=== PATIENT | female | born 1990 | race Two or more races ===

== ENCOUNTER 2024-05-26 20:49 | Emergency (ER) | payer MEDICAID, SELFPAY ==
[2024-05-26 20:51] VITALS: BMI 21.9
--- NOTE | 2024-05-26 21:50 | PC.NURSE ---
no answer when called to be seen
--- NOTE | 2024-05-26 22:06 | PC.NURSE ---
CALLED PATIENT IN THE LOBBY AND OUTSIDE, NO ANSWER RECEIVED.
--- NOTE | 2024-05-26 22:08 | PD.EDADDENDU ---
Emergency Room Addendum Addendum Narrative: When I looked for the patient, I was told the patient eloped. Hernesto Sheehan MD
--- NOTE | 2024-05-26 22:25 | PC.NURSE ---
no answer when called to be seen
== END 2024-05-26 23:01 | disposition left against medical advice (07) ==
LOC: SERX 22:43
PROVIDERS: Emergency Provider Emergency Medicine
DX: Z53.21 Procedure and treatment not carried out due to patient leaving prior to being seen by health care provider (principal)

== ENCOUNTER 2024-06-11 16:29 | Inpatient (IN) | payer MEDICAID, SELFPAY ==
[2024-06-11] VITALS (10 sets, daily range): BP systolic 84–120; BP diastolic 50–102; PULSE 71–124; RESP 16–96; TEMP 37.1–38.3; O2SAT 95–100; BMI 21.2
--- NOTE | 2024-06-11 16:40 | PC.NURSE ---
BIBA FROM HOME FOR BACK TO BACK SEIZURES, EMS WITNESS A TONIC CLONIC SEIZURE WHEN THEY ARRIVED ON SCENE. PT DOES HAVE A HX OF SEIZURES AND IS ON KEPPRA. EMS GAVE 2.5MG OF MIDAZOLAM EN ROUTE. SEPSIS ALERT CALLED AT [id number]
--- NOTE | 2024-06-11 16:43 | XR_ITS ---
Examination: AP chest single view TECHNIQUE: AP portable supine chest single view Exam date and time:: June 11, 2024 at 1653 hours Comparison March 19, 2020 INDICATIONS: Chest pain today FINDINGS: Subtle opacity in the right upper lobe Normal heart size Left lung clear Intact osseous structures IMPRESSION: Suspicious for right upper lobe pneumonia
--- NOTE | 2024-06-11 16:43 | XR_ITS ---
Examination: CT brain head without contrast. 2-D sagittal coronal reconstructions Date and time of exam:June 11, 2024, 1819 hours Comparison November 25, 2022 INDICATIONS: Onset seizures today, seizure November 2022 CTDI: vol (mGy):47.2 DLP: (mGycm):959 Technique: Multiple CT axial sections of the brain have been obtained, 5 mm slice thickness. Contrast has not been administered. 2-D sagittal, coronal reconstructions have been obtained Low dose protocols were performed. One or more of the following dose reduction techniques were used; automated exposure control, adjustment of the mA and/or KV according to patient size, use of iterative reconstruction technique. Findings: Patient motion degrades scan image quality Ventricles are not enlarged. No gross mass effect No gross hemorrhage or focal intracranial lesion noted Cranial vault grossly intact Acute sphenoid sinusitis, chronic left ethmoid and frontal sinusitis IMPRESSION: Patient motion degrades scan image quality. No gross hemorrhage mass effect or midline shift Consider repeat elective brain MRI follow-up, pre and postcontrast, seizure protocol
--- NOTE | 2024-06-11 16:45 | EDNOTE_ITS ---
<Statement entered by Lizbeth Ching MD - 06/12/24 04:24> As co-signing physician, I was present and available for consult prn. I concur with the plan and care as documented by the midlevel provider. ED Seizures RME/HPI General Chief Complaint: Seizure Stated Complaint: SEIZURE Time Seen by Provider: 06/11/24 16:40 Arrival date/time: 06/11/24 16:29 RME / HPI RME / HPI Narrative: 34-year-old female patient was brought in by EMS for evaluation regarding tonic- clonic seizure. Cording to the EMS patient was noted to have clonic specific seizure [id number], lasting for few minutes. Patient developed incontinence. Patient did not bite her tongue. Patient was given Versed 2.5 mg IV. On my initial evaluation patient completely sedated. Patient is taking Keppra. Was noted to have fever. Related Data Previous Rx's ?Medication ?Instructions ?Recorded cyclobenzaprine 10 mg tablet 10 mg PO TID PRN muscle s pasm #30 03/19/20 tabs ibuprofen 600 mg tablet 600 mg PO Q8H PRN pain #30 t abs 03/19/20 Allergies Allergy/AdvReac Type Severity Reaction Status Date / Time No Known Allergies Allergy Verified 06/11/24 16:40 Review of Systems Review of Systems Narrative Review of Systems: Review of system reviewed and within normal limits except mentioned in HPI ED Exam Narrative Physical exam: VITAL SIGNS: Reviewed. GENERAL APPEARANCE: Sedated no acute distress, HEAD AND FACE: Non-traumatic. ENT: PERRL, pink conjunctivitis, eyelid no trauma, Mucous membrane moist. NECK: Supple, , no nuchal rigidity. CHEST: No tenderness, no crepitus, no paradoxical movement, no retractions. LUNGS: Clear, well ventilated, symmetric, no rales, no wheezing, no ronchi, no stridor, good breath sounds bilaterally. HEART: Regular rate, regular rhythm, no murmur, no gallops. ABDOMEN: Soft, positive bowel sounds, nondistended, no guarding, no rebound, no masses, RECTAL: Deferred. GENITAL: Deferred. NEUROLOGICAL: Gross motor function intact sensory function intact, Appropriate for age. EXTREMITIES: full range of motion. SKIN: Color pink, dry, no rash, no lacerations, no abrasions, no contusions. LYMPHATICS: Deferred. Course Quality Measures none Orders Category Date Time Status Patient Condition Routine Admission 06/11/24 20:15 Ordered Bedside COVID-19 Antigen Test NOW Care 06/11/24 16:44 Active Bedside Influenza A&B Antigen Test NOW Care 06/11/24 16:44 Completed COVID-19 Screening Questionnaire NOW Care 06/11/24 19:23 Active Branch [employer] Executive STAT Care 06/11/24 16:42 Active Continuous Pulse Oximetry STAT Care 06/11/24 16:42 Completed Decision to Admit X1 Care 06/11/24 19:23 Completed EKG (ED ONLY) *Do not use* NOW Care 06/11/24 16:42 Completed In and Out Catheter X1 Care 06/11/24 16:40 Completed In and Out Catheter X1PRN Care 06/11/24 16:42 Completed Insert IV NOW Care 06/11/24 16:42 Active Intake and Output QSHIFT Care 06/11/24 20:15 Ordered Miscellaneous Nursing Order NOW Care 06/11/24 20:15 Active NPO STAT Care 06/11/24 16:42 Active Notify provider NEEDED Care 06/11/24 20:15 Active Obtain weight NOW Care 06/11/24 20:15 Completed Sequential Compression Device QSHIFT Care 06/11/24 20:15 Active Strict Intake and Output Routine Care 06/11/24 16:42 Ordered Consult to Neurology / Tele-Neurology Routine Cons 06/11/24 20:[address] head/brain wo con Stat Exams 06/11/24 16:43 Completed EKG (ED Only) Stat Exams 06/11/24 16:42 Ordered XR chest 1V SEPSIS PROTOCOL Stat Exams 06/11/24 16:43 Completed A1C [Glycohemoglobin w (eAG)] Stat Lab 06/11/24 16:55 Completed ABG [Arterial Blood Gas] Stat Lab 06/11/24 20:20 Completed B-Type Natriuretic Peptide Stat Lab 06/11/24 16:55 Completed Beta HCG,Quantitative Stat Lab 06/11/24 16:55 Completed Beta Hydroxybutyrate Stat Lab 06/11/24 20:28 Completed Blood Culture (Lab) Stat Lab 06/11/24 16:55 Received CBC AM DRAW Lab 06/12/24 05:00 Ordered CBC AM DRAW Lab 06/13/24 05:00 Ordered CBC AM DRAW Lab 06/14/24 05:00 Ordered CBC Stat Lab 06/11/24 16:55 Completed CMP [Comprehensive Metabolic Panel] AM DRAW Lab 06/12/24 05:00 Ordered CMP [Comprehensive Metabolic Panel] AM DRAW Lab 06/13/24 05:00 Ordered CMP [Comprehensive Metabolic Panel] AM DRAW Lab 06/14/24 05:00 Ordered Comprehensive Metabolic Panel Stat Lab 06/11/24 16:55 Completed Drug Screen,Urine Stat Lab 06/11/24 16:48 Completed LDH (Lactate Dehydrogenase) Stat Lab 06/11/24 16:55 Completed Lactate (Lactic Acid) Stat Lab 06/11/24 16:55 Completed Lactic Acid, 3 HR Stat Lab 06/11/24 20:28 Completed Lipase Stat Lab 06/11/24 16:55 Completed Lipid Panel AM DRAW Lab 06/12/24 05:00 Ordered Magnesium AM DRAW Lab 06/12/24 05:00 Ordered Magnesium AM DRAW Lab 06/13/24 05:00 Ordered Magnesium Stat Lab 06/11/24 16:55 Completed Partial Thromboplastin Time Stat Lab 06/11/24 16:55 Completed Phosphorous AM DRAW Lab 06/12/24 05:00 Ordered Phosphorous AM DRAW Lab 06/13/24 05:00 Ordered Phosphorous Stat Lab 06/11/24 16:55 Completed Procalcitonin Stat Lab 06/11/24 16:55 Completed Prothrombin Time with INR AM DRAW Lab 06/12/24 05:00 Ordered Prothrombin Time with INR Stat Lab 06/11/24 16:55 Completed Renal Function Panel Stat Lab 06/11/24 20:28 Completed Thyroid Stimulating Hormone AM DRAW Lab 06/12/24 05:00 Ordered Troponin I Stat Lab 06/11/24 16:55 Completed Urinalysis Routine Lab 06/11/24 20:15 Ordered Urinalysis Stat Lab 06/11/24 16:48 Completed Urinalysis, C/S if Indicated Stat Lab 06/11/24 16:48 Completed Acetaminophen Ivpb [Ofirmev Inj] Med 06/11/24 16:44 Discontinued 1,000 mg in 100 ml IV Q6H Acetaminophen Supp [Tylenol Supp] Med 06/11/24 16:44 Discontinued 650 mg MN X1 ONE Acetaminophen Tab [Tylenol Tab] Med 06/11/24 20:14 Active 650 mg PO Q6H PRN Ondansetron Inj [Zofran Inj] Med 06/11/24 20:14 Active 4 mg IV Q6H PRN POTASSIUM CHL 10 mEq IVPB [Kcl Ivpb] Med 06/11/24 18:21 Discontinued 10 meq in 100 ml IV X1 Ringers Lactated 1000 ml [Lactated Ringers] 1,000 ml Med 06/11/24 16:43 Discontinued IV 999 mls/hr Ringers Lactated 1000 ml [Lactated Ringers] 1,000 ml Med 06/11/24 18:21 Discontinued IV 999 mls/hr Senna [Senokot] Med 06/11/24 20:14 Active 2 tab PO BID PRN cefTRIAXone/D5w 1gm IV premix [Rocephin/D5w 1gm IV Med 06/11/24 18:20 Discontinued premix] 1 gm in 50 ml IV X1 cefTRIAXone/D5w 1gm IV premix [Rocephin/D5w 1gm IV Med 06/11/24 20:18 Discontinued premix] 50 ml IV QDAY levETIRAcetam INJ [Keppra Inj] Med 06/11/24 16:42 Discontinued 1,000 mg IVP X1 ONE levETIRAcetam INJ [Keppra Inj] Med 06/11/24 21:00 Pending 500 mg IVP Q12HR Code Status Routine Oth 06/11/24 20:14 Ordered Oxygen Delivery DAILY RT 06/11/24 20:15 Active Oxygen Delivery NOW RT 06/11/24 16:42 Active Vital Signs Vital signs: Vital Signs Temperature 100.9 F H 06/11/24 17:11 Pulse Rate 92 06/11/24 17:11 Respiratory Rate 22 H 06/11/24 17:11 Blood Pressure 96/70 06/11/24 17:11 Pulse Oximetry (%) 95 06/11/24 17:11 Oxygen Delivery Method Oxy Mask 06/11/24 17:11 Oxygen Flow Rate 2 06/11/24 17:11 Seizure MDM Narrative MDM Narrative:: 34-year-old female patient was brought in by EMS for evaluation regarding tonic- clonic seizure. Cording to the EMS patient was noted to have clonic specific seizure [id number], lasting for few minutes. Patient developed incontinence. Patient did not bite her tongue. Patient was given Versed 2.5 mg IV. On my initial evaluation patient completely sedated. Patient is taking Keppra. Was noted to have fever. Was noted to be having GCS of 8 however protecting her airway. Patient's initial lactic acid was noted to be 14, bicarb less than 10. Potassium was noted to be 3.1 chest x-ray showed possible early pneumonia CT scan of the head came back unremarkable. ABG came back unremarkable. Patient received total of 3 L IV fluids, Keppra, and IV ceftriaxone patient was also given potassium replacement. Spoke with hospitalist who admitted the patient Patient data External records reviewed:: None Clinical information provided by:: patient Social determinants that could affect healthcare access:: none Patient has the following chronic illnesses:: Seizure disorder How is presenting disease/condition affected by chronic disease/condition?: exacerbated by Evaluation data The following diagnostics were reviewed and interpreted by me:: lab results and radiology exam(s) Lab and/or radiology exams considered but not ordered:: None Interpretation Summary: See results MDM Medications / Prescriptions Medications or Prescriptions considered but not ordered:: Plan Medication administrations:: Medication Administration History Acetaminophen (Acetaminophen 325 Mg Tablet) 650 mg PO Q6H PRN PRN Reason: PAIN OR FEVER > 101 Stop: 07/11/24 20:13 Heparin Sodium (Porcine) (Heparin Sod Inj 5000 Unit/Ml Vial) 5,000 unit SC Q8HR MATTY Stop: 06/25/24 21:59 Ceftriaxone Sodium/Dextrose (Rocephin/D5w 1gm Iv Premix) 50 mls @ 100 mls/hr IV QDAY MATTY Stop: 06/19/24 08:59 Levetiracetam (Levetiracetam Inj 100 Mg/Ml Vial 5ml) 500 mg IVP Q12HR MATTY Stop: 07/11/24 20:59 Lorazepam (Lorazepam 2 Mg/Ml Vial) 2 mg IVP Q5MIN PRN PRN Reason: SEIZURES Stop: 06/16/24 21:31 Ondansetron HCl (Ondansetron Inj 2 Mg/Ml Inj 2 Ml) 4 mg IV Q6H PRN; Protocol PRN Reason: NAUSEA OR VOMITING Stop: 07/11/24 20:13 Sennosides (Senna Tablet) 2 tab PO BID PRN; Protocol PRN Reason: CONSTIPATION Stop: 07/11/24 20:13 Discontinued Medications Acetaminophen (Acetaminophen Supp 650 Mg Supp) 650 mg MN X1 ONE Stop: 06/11/24 16:45 Last Admin: 06/11/24 17:23 Dose: Not Given Documented By: NACOH Non-Admin Reason: Cancelled by Provider Lactated Ringer's (Lactated Ringers) 1,000 mls @ 999 mls/hr IV .Q1H1M ONE Stop: 06/11/24 17:43 Last Infusion: 06/11/24 18:13 Dose: Infused Documented By: Admin: 06/11/24 17:08 Dose: 999 mls/hr Documented By: NACHO Acetaminophen (Ofirmev Inj) 1,000 mg in 100 mls @ 250 mls/hr IV Q6H MATTY Stop: 06/12/24 11:07 Last Infusion: 06/11/24 17:59 Dose: Infused Documented By: Admin: 06/11/24 17:10 Dose: 250 mls/hr Documented By: NACHO Ceftriaxone Sodium/Dextrose (Rocephin/D5w 1gm Iv Premix) 1 gm in 50 mls @ 100 mls/hr IV X1 ONE Stop: 06/11/24 18:49 Last Infusion: 06/11/24 19:55 Dose: Infused Documented By: Admin: 06/11/24 19:25 Dose: 100 mls/hr Documented By: JUANITA Lactated Ringer's (Lactated Ringers) 1,000 mls @ 999 mls/hr IV .Q1H1M ONE Stop: 06/11/24 19:21 Last Infusion: 06/11/24 19:55 Dose: Infused Documented By: Admin: 06/11/24 18:53 Dose: 999 mls/hr Documented By: NACHO Potassium Chloride (Kcl Ivpb) 10 meq in 100 mls @ 100 mls/hr IV X1 ONE Stop: 06/11/24 19:20 Last Infusion: 06/11/24 20:00 Dose: Infused Documented By: Admin: 06/11/24 18:56 Dose: 100 mls/hr Documented By: NACHO Ceftriaxone Sodium/Dextrose (Rocephin/D5w 1gm Iv Premix) 50 mls @ 100 mls/hr IV QDAY MATTY Stop: 06/18/24 20:17 Levetiracetam (Levetiracetam Inj 100 Mg/Ml Vial 5ml) 1,000 mg IVP X1 ONE Stop: 06/11/24 16:43 Last Admin: 06/11/24 17:06 Dose: 1,000 mg Documented By: NACHO Cr 1 g IV ceftriaxone IV potassium replacement IV fluids total of 3 L Consultations Consultation(s) initiated? (list below): No Diagnosis Seizure Differential Diagnosis: intractable seizure disorder, generalized seizure and status epilepticus Most likely diagnosis given after review of the tests above:: Intractable seizure disorder, lactic acidosis Admission Indicated Admission indicated?: indicated Admission Request Was there a request for admission?: Yes Admission Attestation Admission request attestation: Discussed case with [Dr. Krause] from Hospitalist service regarding admission. Discussed patients ED course, exam findings, labs, and radiology results. The Hospitalist [agrees] to accept the patient for admission. Disposition Plan Disposition Plan: Admit Discharge Plan Plan Patient Disposition: Admit Acute Care w/in Hospital Problem List Clinical Impression: Intractable seizure disorder, Acidosis, lactic
[2024-06-11 16:53] LABS: Collection Type, Urine Catheter
[2024-06-11] MEDS: levETIRAcetam INJ 100 MG/ML VIAL 5ML 1000 MG IVP (17:06)
[2024-06-11] MEDS: RINGERS LACTATED 1000 ML 1,000 ML 999 ML IV ×2 (17:08→18:53)
[2024-06-11] MEDS: ACETAMINOPHEN IVPB 1,000 MG/100 ML VIAL 250 MG IV (17:10)
[2024-06-11 17:27] LABS: Basophils # (Auto) 0.1 Thou/mm3 (0.0-0.2); Basophils % (Auto) 1 % (0-2.5); Eosinophils # (Auto) 0.1 Thou/mm3 (0.0-0.5); Eosinophils % (Auto) 1 % (0-10); Hematocrit 43.8 % (36.0-46.0); Hemoglobin 14.1 g/dL (12.0-16.0); Immature Granulocytes % (Auto) 1 % (0-0); Immature Granulocytes Auto 0.11 Thou/mm3 (0.00-0.00); Lymphocytes # (Auto) 3.8 Thou/mm3 (1.0-4.8); Lymphocytes % (Auto) 27 % (10-50); Mean Corpuscular HGB Conc 32.2 g/dl (31.0-37.0); Mean Corpuscular Hemoglobin 28.8 pg (25.0-35.0); Mean Corpuscular Volume 89 fL (80-100); Monocytes # (Auto) 0.8 Thou/mm3 (0.0-0.8); Monocytes % (Auto) 5 % (0-12); Neutrophils # (Auto) 9.6 Thou/mm3 (1.8-7.7); Neutrophils % (Auto) 66 % (37-80); Nucleated Red Blood Cell % 0 /100 WBC (0); Platelet Count 365 Thou/mm3 (140-440); RDW Standard Deviation 43.1 fL (36.4-46.3); White Blood Count 14.4 Thou/mm3 (3.6-11.0)
[2024-06-11 17:32] LABS: Bilirubin,Urine Negative (Negative); Blood,Urine Negative (Negative); Clarity,Urine Clear (Clear/Hazy); Color,Urine Yellow (Lt Yel-Yel); Culture Indicated,Urine Not Indicated; Glucose, Urine Negative (Negative); Hyaline Casts,Urine < 1 /hpf (0-1); Ketones,Urine Negative (Negative); Leukocyte Esterase,Urine Negative (Negative); Nitrite,Urine Negative (Negative); Protein,Urine 1+ (Neg - Trace); RBC,Urine 1 /hpf (0-3); Specific Gravity,Urine 1.016 (1.001-1.035); Squamous Epithelial Cell,Urine 1 /hpf (0-5); Urobilinogen,Urine Negative mg/dL (0.0-1.0); WBC,Urine 1 /hpf (0-5)
[2024-06-11 17:41] LABS: INR 1.2 (0.9-1.3); Partial Thromboplastin Time 25.6 Seconds (22.0-36.0)
[2024-06-11 17:45] LABS: B-Type Natriuretic Peptide < 20 pg/mL (0-100)
[2024-06-11 18:04] LABS: Alanine Aminotransferase 23 U/L (10-49); Albumin, Serum 4.7 gm/dL (3.5-5.0); Albumin/Globulin Ratio 1.7 (1.2-2.2); Alkaline Phosphatase 102 U/L (46-116); Aspartate Amino Transferase 30 U/L (0-34); BUN/Creatinine Ratio 5 Ratio (12-20); Bilirubin,Total 0.6 mg/dL (0.3-1.2); Blood Urea Nitrogen 6 mg/dL (9-23); Chloride 105 mMol/L (98-107); Creatinine (Component) 1.2 mg/dL (0.6-1.3); Estimated Creatinine Clearance 51.3 mL/min (>60); Globulin 2.8 gm/dL (2.3-3.5); Glucose 204 mg/dL (74-106); LDH (Lactate Dehydrogenase) 221 U/L (120-246); Lipase 43 U/L (12-53); Magnesium 1.9 mg/dL (1.6-2.6); Osmolality,Calculated 292 (275-295); Phosphorous 4.8 mg/dL (2.4-5.1); Potassium 3.1 mMol/L (3.4-5.1); Procalcitonin 0.04 ng/ml (0.0-0.49); Sodium 145 mMol/L (136-145); Total Protein 7.5 gm/dL (5.7-8.2); Troponin I < 0.002 ng/mL (0.0-0.045); eGFR > 60 See Note
[2024-06-11 18:06] LABS: Anion Gap 30 (7-16)
[2024-06-11 18:07] LABS: Carbon Dioxide < 10.0 mMol/L (20.0-31.0)
[2024-06-11] MEDS: POTASSIUM CHL 10 mEq IVPB 10 MEQ/100 ML BAG 100 MEQ IV (18:56)
[2024-06-11] MEDS: cefTRIAXone/D5w 1gm IV premix 1 GM/50 ML BAG IV (19:25)
--- NOTE | 2024-06-11 19:29 | PC.NURSE ---
pt is asleep. arouses with light touch and normal voice. Family at bedside states this is typically how she responds after sz.
[2024-06-11 19:56] LABS: Beta HCG,Quantitative < 1 mIU/mL (<5.0)
[2024-06-11 20:12] LABS: Glucose Estimated Average 91 mg/dL (80-131); Hemoglobin A1C 4.8 % Hgb (4.8-6.0)
[2024-06-11 20:15] LABS: Reflex Lactate? Y
[2024-06-11 20:27] LABS: Base Excess 1 (-3-3); HCO3 24 mEq/L (20-26); Inspired Oxygen, FIO2 21 %; O2 Saturation 98 % (91-98); PCO2 36 mmHg (32.0-48.0); PO2 92 mmHg (83-108); pH, Arterial 7.44 (7.35-7.45)
[2024-06-11 20:31] LABS: Allen Test Performed/OK; Puncture Site Right Radial
[2024-06-11 20:40] LABS: Lactic Acid, 3 HR 1.7 mMol/L (0.4-2.0)
--- NOTE | 2024-06-11 20:52 | PD.RESHP ---
Documentation for date of: 06/11/24 HPI History of Present Illness History of present illness: Stepfather is present at the bedside who contributed to most of the H&P, as patient is unable to provide history due to mental status. The patient is a 34-year-old female, past medical history of seizure disorder, was brought into the ER by EMS after having multiple episodes of witnessed seizures. Reportedly, the patient has a history of seizure disorder, followed at the [facility], has history of noncompliance with medications, has occasional generalized tonic-clonic seizures once or twice every couple months. Father also reported patient takes lamotrigine at home, but has stopped taking her medications couple weeks ago, before restarting a few days earlier. Today the patient was in her usual state of health, she was sitting in her couch this afternoon, and had an episode of generalized tonic-clonic seizure which was witnessed by family at home, which lasted more than 1 minute, then spontaneously terminated, but had repeated episodes of generalized tonic-clonic seizures, with no return to baseline mental status between seizure episodes. EMS was called, and patient was brought to the emergency room. She received Midazolam x 1 en route to hospital. Her stepfather denied any history of fever, headache, altered mental status, urinary discomfort, abdominal discomfort or neck stiffness prior to the Episodes of seizures. Patient did have 1 episode of vomiting while she was being brought back from the CT. In the ER, Initial vitals 96/70, temperature 100 F, sepsis alert was called by the ER , patient was given loading dose of Keppra 1000 mg x 1, patient continued to stay in postictal state patient, initial labs show hypokalemia, glucose 204, A1c 4.8%, lactate 14 , bicarb < 10, BHB 1, Pro-Connor 0.04, beta-hCG < 1. Urinalysis shows 1+ protein, chest x-ray shows rt upper lobe pneumonia, CT head showed was limited study due to patient motion, showed no gross hemorrhage mass effect or midline shift, pertinent for acute sphenoid sinusitis, chronic left ethmoid and frontal sinusitis. Past medical history: History of seizure disorder, had EEG in the past, but stepfather unsure if she was diagnosed with epilepsy. Does not follow neurologist at the moment, follows PCP at [facility]. Social history: Patient is cannabis smoker, denied IV drug use, methamphetamine use. Denied smoking or alcohol intake. Family history: Not pertinent Travel history: Not pertinent Review of Systems Review of Systems ROS Unobtainable: unobtainable due to mental status Past Medical History Past Medical History NEUROLOGIC: Positive Neurological Disorders and Seizures CARDIAC: Negative Congestive Heart Failure RESPIRATORY: Negative Chronic Obstructive Pulmonary Disease (COPD) GENITOURINARY: Negative Renal Disease ENDOCRINE: Negative Diabetes Mellitus Type 1 or Diabetes Mellitus Type 2 Family History FAMILY HISTORY: Positive Family Neurologic Problems (father has seizures) Social History SMOKING STATUS: Unknown if ever smoked SUBSTANCE USE: marijuana Exam Vital Signs Temp Pulse Resp BP Pulse Ox O2 Del Method O2 Flow Rate 99.0 F 89 16 120/102 H 97 Room Air 2 06/11/24 18:37 06/11/24 19:26 06/11/24 19:26 06/11/24 19:26 06/11/24 19:26 06/11/24 19:06/11/24 17:11 Narrative Exam General: AOx0,, currently drowsy due to postictal state, currently protecting airway Skin: Intact, no cyanosis or edema noted. HEENT: Atraumatic/normocephalic, JACKIE, neck supple Heart: RRR, S1 and S2 without clicks or murmurs Lungs: Clear on auscultation bilaterally, no difficulty breathing Abdomen: Soft, nontender. Bowel sounds present . Vascular: Peripheral pulses palpable Neuro: No focal neurological deficits noted. GCS 10/15, currently protecting airway, able to move all 4 extremities in response to pain. No neck stiffness on exam. Results: Labs 06/11/24 16:55 06/11/24 20:28 Labs: Short CBC 06/11/24 Range/Units 16:55 WBC 14.4 H (3.6-11.0) Thou/mm3 Hgb 14.1 (12.0-16.0) g/dL Hct 43.8 (36.0-46.0) % Plt Count 365 (140-440) Thou/mm3 BMP 06/11/24 16:55 Sodium 145 Potassium 3.1 L Chloride 105 Carbon Dioxide < 10.0 L* BUN 6 L Creatinine 1.2 Glucose 204 H Calcium 9.0 Cardiac Enzymes 06/11/24 Range/Units 16:55 Troponin I < 0.002 (0.0-0.045) ng/mL Liver Function 06/11/24 Range/Units 16:55 Total Bilirubin 0.6 (0.3-1.2) mg/dL AST 30 (0-34) U/L ALT 23 (10-49) U/L Alkaline Phosphatase 102 (46-116) U/L Albumin 4.7 (3.5-5.0) gm/dL Urine 06/11/24 Range/Units 16:48 Urine Color Yellow (Lt Yel-Yel) Urine Clarity Clear (Clear/Hazy) Urine pH 7.0 (5.0-7.0) Ur Specific [place] 1.016 (1.001-1.035) Urine Protein 1+ A (Neg - Trace) Urine Glucose (UA) Negative (Negative) ABG Interpretation ABG results: 06/11/24 20:20 ABG pH 7.44 ABG pCO2 36 ABG pO2 92 ABG HCO3 24 ABG O2 Saturation 98 ABG Base Excess 1 Quality Measures Quality Measures VTE prophylaxis Medications Home Medications and Allergies Home Medications ?Medication ?Instructions ?Recorded ?Confirmed ?Type lamotrigine 25 mg tablet 25 mg PO BID 06/12/24 06/12/24 History levetiracetam 500 mg tablet 500 mg PO BID 06/12/24 06/12/24 History Allergies Allergy/AdvReac Type Severity Reaction Status Date / Time No Known Allergies Allergy Verified 06/11/24 16:40 Visit Medications Acetaminophen (Acetaminophen 325 Mg Tablet) 650 mg PO Q6H PRN PRN Reason: PAIN OR FEVER > 101 Stop: 07/11/24 20:13 Ceftriaxone Sodium/Dextrose (Rocephin/D5w 1gm Iv Premix) 50 mls @ 100 mls/hr IV QDAY MATTY Stop: 06/18/24 20:17 Levetiracetam (Levetiracetam Inj 100 Mg/Ml Vial 5ml) 500 mg IVP Q12HR MATTY Stop: 07/11/24 20:59 Ondansetron HCl (Ondansetron Inj 2 Mg/Ml Inj 2 Ml) 4 mg IV Q6H PRN; Protocol PRN Reason: NAUSEA OR VOMITING Stop: 07/11/24 20:13 Sennosides (Senna Tablet) 2 tab PO BID PRN; Protocol PRN Reason: CONSTIPATION Stop: 07/11/24 20:13 Discontinued Medications Acetaminophen (Acetaminophen Supp 650 Mg Supp) 650 mg [place] X1 ONE Stop: 06/11/24 16:45 Last Admin: 06/11/24 17:23 Dose: Not Given Lactated Ringer's (Lactated Ringers) 1,000 mls @ 999 mls/hr IV .Q1H1M ONE Stop: 06/11/24 17:43 Last Infusion: 06/11/24 18:13 Dose: Infused Acetaminophen (Ofirmev Inj) 1,000 mg in 100 mls @ 250 mls/hr IV Q6H MATTY Stop: 06/12/24 11:07 Last Infusion: 06/11/24 17:59 Dose: Infused Ceftriaxone Sodium/Dextrose (Rocephin/D5w 1gm Iv Premix) 1 gm in 50 mls @ 100 mls/hr IV X1 ONE Stop: 06/11/24 18:49 Last Infusion: 06/11/24 19:55 Dose: Infused Lactated Ringer's (Lactated Ringers) 1,000 mls @ 999 mls/hr IV .Q1H1M ONE Stop: 06/11/24 19:21 Last Infusion: 06/11/24 19:55 Dose: Infused Potassium Chloride (Kcl Ivpb) 10 meq in 100 mls @ 100 mls/hr IV X1 ONE Stop: 06/11/24 19:20 Last Infusion: 06/11/24 20:00 Dose: Infused Levetiracetam (Levetiracetam Inj 100 Mg/Ml Vial 5ml) 1,000 mg IVP X1 ONE Stop: 06/11/24 16:43 Last Admin: 06/11/24 17:06 Dose: 1,000 mg Assessment & Plan Plan Patient is a 34-year-old female, past medical history of seizure disorders, brought to the emergency room via EMS after multiple episodes of witnessed tonic-clonic seizures. # Seizure disorders Multiple episodes of generalized tonic-clonic seizures, received midazolam 2.5 mg en route to EMS, at the time evaluated in the ER she is postictal, responsive only to pain, with father at the bedside stated her mental status is improving slowly. History of noncompliance to home medications including lamotrigine. Received loading dose of Keppra in the ER. Per stepfather, patient does not have a formal diagnosis of epilepsy, has a primary care provider at [facility] but does not follow neurologist. ? Levetiracetam 500 mg IV twice daily ? EEG ordered ? Neurology consult to Dr. Burleson, appreciate recommendations ? Seizure precautions in place ? IV Ativan 2 mg as needed for seizures # Pneumonia # Acute sinusitis Per father patient had no history of fever leading up to the episode of seizures, no reported cough, or headache. Initial CT showed acute and chronic sinusitis, although chest x-ray showed pneumonia patient did have 1 episode of vomiting while she was being transferred from the CT scan. Possible aspiration pneumonia. ? IV ceftriaxone 1 g daily ? IV metronidazole every 8 hours ? Aspiration precautions in place ? follow blood cultures, # Lactic acidosis?now resolved # High anion gap metabolic acidosis?now resolved Likely 14, CO2 less than 10, likely related to seizures, reported improvement in lactic acid after IV fluid boluses, received 3 L IV fluid boluses, patient has no history of diabetes mellitus, A1c 4.8, initial glucose 204, repeat lactic acid 1.7. BHB 1.0, Pro-Connor 0.04, ? ABG was ordered which showed resolution of acidosis. ? Continue IV fluids. #Hypokalemia?now resolved Replete as indicated. Disposition: neuro recs, admit to tele, DVT prophylaxis: Heparin subcut GI prophylaxis: none Diet: regular, start diet when gcs 15/15, after swallow screen Lines: PIV CODE STATUS: Full Plan of care discussed with my attending physician Rob PGY2 Attending Provider Attestation/Addendum I have examined the patient, reviewed labs and imaging findings, discussed the case with the resident(s), and reviewed entered orders. I agree with the plan of care as outlined in this note, with these additional summaries/recommendations: 34-year-old female with history of seizure disorder who presents been on and off of medications presents to the ED with chief complaint of witnessed seizure episodes x 3 at home. Restart home medications and give loading dose of Keppra, consult neurology for completion of seizure workup. Klaus Arevalo MD
[2024-06-11 21:08] LABS: Carbon Dioxide 24.1 mMol/L (20.0-31.0); Chloride 108 mMol/L (98-107); Potassium 3.6 mMol/L (3.4-5.1); Sodium 144 mMol/L (136-145)
[2024-06-11 21:09] LABS: Anion Gap 12 (7-16)
[2024-06-11 21:38] LABS: Amphetamine/Methamp Scrn,U Negative (Negative); Barbiturate Screen,Urine Negative (Negative); Benzodiazepines Screen,Urine Negative (Negative); Benzoylecgonine Screen, Ur Negative (Negative); Fentanyl Screen,Urine Negative (Negative); Opiate Screen,Urine Negative (Negative); THC Screen,Urine Positive (Negative)
[2024-06-11 21:38] LABS: Albumin, Serum 3.7 gm/dL (3.5-5.0); BUN/Creatinine Ratio 7 Ratio (12-20); Blood Urea Nitrogen < 5 mg/dL (9-23); Calcium (Corrected) 8.2 mg/dL (8.5-10.1); Creatinine (Component) 0.7 mg/dL (0.6-1.3); Estimated Creatinine Clearance 87.9 mL/min (>60); Glucose 99 mg/dL (74-106); Osmolality,Calculated 284 (275-295); eGFR > 60 See Note
--- NOTE | 2024-06-11 22:36 | PC.NURSE ---
Pt is awake now. Sitting up conversing with family.
[2024-06-12] VITALS (11 sets, daily range): BP systolic 88–115; BP diastolic 53–75; PULSE 60–113; RESP 15–98; TEMP 36.7–37.1; O2SAT 97–100; BMI 20.2
[2024-06-12] MEDS: ACETAMINOPHEN 325 MG TABLET 650 MG PO ×3 (01:22→18:08)
[2024-06-12] MEDS: levETIRAcetam INJ 100 MG/ML VIAL 5ML 500 MG IVP ×3 (01:23→20:17)
[2024-06-12] MEDS: HEPARIN SOD INJ 5000 UNIT/ML VIAL SC ×2 (01:24→14:06)
--- NOTE | 2024-06-12 02:41 | PC.NURSE ---
Report called to Sissy SHEIKH. Pt taken to rm 266 on monitor by me.
[2024-06-12] MEDS: ONDANSETRON INJ 2 MG/ML INJ 2 ML 4 MG IV ×2 (02:52→09:12)
--- NOTE | 2024-06-12 03:44 | PC.NURSE ---
notifed Dr. duarte of potassium phos not availble until pharmacy is here at 6am. He said ok to give when pharmacy is able to mix.
--- NOTE | 2024-06-12 05:16 | RESP.EEG ---
EEG ATTEMPTED AT 0400. EEG NOT COMPLETED. RT WILL RETURN TO COMPLETE EEG THIS MORNING, RN AWARE.
[2024-06-12] MEDS: POT PHOS 15 mMol in NS 250 ML 15 MMOL/250 ML BAG 62.5 MMOL IV (06:14)
[2024-06-12 07:03] LABS: INR 1.3 (0.9-1.3); Prothrombin Time 13.5 Seconds (9.0-12.2)
[2024-06-12 07:10] LABS: Basophils % (Auto) 0 % (0-2.5); Eosinophils % (Auto) 0 % (0-10); Immature Granulocytes % (Auto) 0 % (0-0); Immature Granulocytes Auto 0.03 Thou/mm3 (0.00-0.00); Lymphocytes # (Auto) 2.7 Thou/mm3 (1.0-4.8); Lymphocytes % (Auto) 22 % (10-50); Mean Corpuscular HGB Conc 34.4 g/dl (31.0-37.0); Mean Corpuscular Hemoglobin 29.2 pg (25.0-35.0); Mean Corpuscular Volume 85 fL (80-100); Monocytes # (Auto) 0.8 Thou/mm3 (0.0-0.8); Monocytes % (Auto) 7 % (0-12); Neutrophils # (Auto) 8.8 Thou/mm3 (1.8-7.7); Neutrophils % (Auto) 71 % (37-80); Nucleated Red Blood Cell % 0 /100 WBC (0); Platelet Count 228 Thou/mm3 (140-440); RDW Standard Deviation 41.3 fL (36.4-46.3); Red Blood Count 3.77 Miln/mm3 (4.00-5.20); White Blood Count 12.4 Thou/mm3 (3.6-11.0)
[2024-06-12 07:37] LABS: Alanine Aminotransferase 16 U/L (10-49); Albumin, Serum 3.4 gm/dL (3.5-5.0); Albumin/Globulin Ratio 1.8 (1.2-2.2); Alkaline Phosphatase 71 U/L (46-116); Anion Gap 12 (7-16); Aspartate Amino Transferase 25 U/L (0-34); BUN/Creatinine Ratio 7 Ratio (12-20); Bilirubin,Total 1.3 mg/dL (0.3-1.2); Blood Urea Nitrogen < 5 mg/dL (9-23); Calcium 7.9 mg/dL (8.3-10.6); Calcium (Corrected) 8.4 mg/dL (8.5-10.1); Carbon Dioxide 24.1 mMol/L (20.0-31.0); Cardiac Risk Estimate 2.2 RATIO (3.7-5.6); Chloride 110 mMol/L (98-107); Cholesterol 86 mg/dL (132-200); Creatinine (Component) 0.7 mg/dL (0.6-1.3); Estimated Creatinine Clearance 87.9 mL/min (>60); Globulin 1.9 gm/dL (2.3-3.5); Glucose 87 mg/dL (74-106); HDL Cholesterol 39 mg/dL (40-60); LDL Cholesterol,Calculated 35 mg/dL (0-130); Magnesium 1.8 mg/dL (1.6-2.6); Osmolality,Calculated 286 (275-295); Phosphorous 2.6 mg/dL (2.4-5.1); Potassium 3.3 mMol/L (3.4-5.1); Sodium 146 mMol/L (136-145); Thyroid Stimulating Hormone 1.09 uIU/mL (0.55-4.78); Total Protein 5.3 gm/dL (5.7-8.2); Triglycerides 62 mg/dL (30-150); eGFR > 60 See Note
[2024-06-12] MEDS: LORazepam 2 MG/ML VIAL IVP (07:55)
--- NOTE | 2024-06-12 08:01 | PC.NURSE ---
Per Dr. Valdes if patient doesn't react to two doses of 2 mg ativan to give 4 mg ativan IVP.
--- NOTE | 2024-06-12 08:03 | PD.RESEVENT ---
Documentation for date of: 06/12/24 Event Note Event Note: 06/12/2024: Rapid response called sometime around 7:30 AM for patient having breakthrough seizures. Patient's airway/breathing/circulation assessed while she was having generalized seizures. Patient was in left decubitus position motioning and rotating from right to left continuously. Patient was not responsive and seizure activity persisted for roughly 4-1/2 minutes. Vitals during rapid response included; blood pressure 150/67, respiratory rate 20, saturating 99 on 2 L nasal cannula and heart rate 79. EKG was ordered which showed normal sinus rhythm. Patient was given 2 mg of Ativan which stopped seizure activity. Neurology was contacted after rapid response and the recommendation was to hold off on Ativan at this time, restart patient's home lamotrigine dose and to follow-up on the EEG results. Will continue to monitor for any acute changes in mental status. Patient reassessed and postictal state, somnolent but answering questions appropriately. John Millan, PGY-1
--- NOTE | 2024-06-12 08:05 | EKG_ITS ---
[facility] Test Date: 2024-06-12 Pat Name: ADELE MATHEWS [facility] Gender: Female [place]: [facility] : 1990 Requested By: John Millan Order Number: [id number] Reading MD: John Millan Measurements Intervals [place] Rate: 84 P: 83 [place]: 155 QRS: 86 QRSD: 89 T: 68 QT: 397 QTc: 471 Interpretive Statements SINUS RHYTHM Compared to ECG 12/28/2017 11:11:50 No significant changes /store/S0/[id number].pdf
[2024-06-12] MEDS: Magnesium Sulfate 4 GM Ivpb 4 GM/50 ML BAG IV (08:06)
--- NOTE | 2024-06-12 08:53 | PC.NURSE ---
0853 rapid respond called due to seizure noted by father, ativan given, seizure precautions in place and suction on.
--- NOTE | 2024-06-12 09:10 | PC.NURSE ---
0910 patient alert and responsive, stable, parents at bedside and avasure in place.
[2024-06-12] MEDS: cefTRIAXone/D5w 1gm IV premix 1 GM/50 ML BAG IV (09:12)
[2024-06-12] MEDS: lamoTRIgine 25 MG CHEW PO ×2 (09:43→20:17)
[2024-06-12] MEDS: DOXYCYCLINE INJ 100 MG in SODIUM CHLORIDE 0.9% (POP) 100 ML IV ×2 (09:47→20:17)
[2024-06-12] MEDS: POTASSIUM CHLORIDE 20 mEq TABCR 40 MEQ PO (09:47)
--- NOTE | 2024-06-12 11:20 | ESPR_ITS ---
<Statement entered by Mann Ward MD - 06/16/24 14:47> I reviewed above note and agree with findings and plans. I have also personally examined the patient with medicine team and went over assessment and plan with medical team including international student advisor and resident physician. Documentation for date of: 06/12/24 Subjective Subjective Interval history: 06/12/2024: Overnight admission for 34-year-old female with history of seizures from the age of 6 months who unfortunately due to insurance changes had to stop taking her antiseizure medications for 2 months; moreover, developed seizure episode which lasted around 15 minutes per family members were bedside and reporting history. Per previous event note, patient had a rapid response called for breakthrough seizures but is currently stable and responding to questions appropriately. Patient denies having any concerning cardiac symptoms but states that she is having a persistent headache at this time. Patient also notes to have dysphagia to both solids and liquids; moreover, speech evaluation noted that the patient will require dysphagia 3 diet. Will obtain modified barium swallow study for assessment and if the patient's dysphagia persists will consider consulting GI for workup. Exam Vital Signs Temp Pulse Resp BP Pulse Ox O2 Del Method O2 Flow Rate 98.1 F 71 18 104/70 100 Room Air 2 06/12/24 08:00 06/12/24 08:00 06/12/24 08:00 06/12/24 08:00 06/12/24 08:00 06/12/24 08:00 06/11/24 17:11 Narrative Exam Physical Exam: GENERAL: Awake, answering questions appropriately, mildly somnolent, appears stated age HEENT: NC/AT. Moist mucosa. PERRLA/EOMI. CARDIO: Heart RRR, no obvious murmurs, no JVD. PULM: No coughing or visible SOB. Lungs CTA B/L. GI: Abdomen soft, NT/ND, +BS. SKIN/MSK/EXT: No wounds/discoloration/rashes/edema/amputations noted. +Pedal pulses present B/L. NEURO: Oriented x3, Moves extremities x4, no focal neurologic deficits noted Objective Labs 06/12/24 06:17 06/12/24 06:17 Labs: Laboratory Results - last 24 hr 06/11/24 06/11/24 06/11/24 16:48 16:55 20:20 WBC 14.4 H RBC 4.90 Hgb 14.1 Hct 43.8 MCV 89 MCH 28.8 MCHC 32.2 RDW Std Deviation 43.1 Plt Count 365 Neut % (Auto) 66 Lymph % (Auto) 27 [place] % (Auto) 5 Eos % (Auto) 1 Baso % (Auto) 1 Neut # (Auto) 9.6 H Lymph # (Auto) 3.8 [place] # (Auto) 0.8 Eos # (Auto) 0.1 Baso # (Auto) 0.1 Immature Gran # (Auto) 0.11 H Absolute Nucleated RBC 0.00 Immature Gran % 1 H Nucleated RBC % 0 PT 13.0 H INR 1.2 APTT 25.6 Puncture Site Right Radial ABG pH 7.44 ABG pCO2 36 ABG pO2 92 ABG HCO3 24 ABG O2 Saturation 98 ABG Base Excess 1 FiO2 21 Sodium 145 Potassium 3.1 L Chloride 105 Carbon Dioxide < 10.0 L* Anion Gap 30 H BUN 6 L Creatinine 1.2 Estim Creat Clear Calc 51.3 L eGFR > 60 BUN/Creatinine Ratio 5 L Glucose [address] Glu mg/dL 91 Hemoglobin A1c 4.8 Calculated Osmolality 292 Lactic Acid 14.0 H* Calcium 9.0 Corrected Calcium 9.0 Phosphorus 4.8 Magnesium 1.9 Total Bilirubin 0.6 AST 30 ALT 23 Alkaline Phosphatase 102 Lactate Dehydrogenase 221 Troponin I < 0.002 B-Natriuretic Peptide < 20 Total Protein 7.5 Albumin 4.7 Globulin 2.8 Albumin/Globulin Ratio 1.7 Triglycerides Cholesterol LDL Cholesterol, Calc HDL Cholesterol Cholesterol/HDL Ratio Lipase 43 Beta-Hydroxybutyrate/Acetoacetate Procalcitonin 0.04 TSH Beta HCG, Quant < 1 Ur Collection Type Catheter Urine Color Yellow Urine Clarity Clear Urine pH 7.0 Ur Specific [place] 1.016 Urine Protein 1+ A Urine Glucose (UA) Negative Urine Ketones Negative Urine Blood Negative Urine Nitrite Negative Urine Bilirubin Negative Urine Urobilinogen (Auto) Negative Ur Leukocyte Esterase Negative Urine RBC 1 Urine WBC 1 Ur Squamous Epith Cells 1 Urine Bacteria None Hyaline Casts < 1 Ur Culture Indicated? Not Indicated Urine Opiates Screen Negative Urine Fentanyl Screen Negative Ur Barbiturates Screen Negative U Amphetamin/Meth Scrn Negative U Benzodiazepines Scrn Negative U Cocaine Metab Screen Negative U Marijuana (THC) Screen Positive A 06/11/24 06/12/24 20:28 06:17 WBC 12.4 H RBC 3.77 L Hgb 11.0 L D Hct 32.0 L D MCV 85 MCH 29.2 MCHC 34.4 RDW Std Deviation 41.3 Plt Count 228 D Neut % (Auto) 71 Lymph % (Auto) 22 [place] % (Auto) 7 Eos % (Auto) 0 Baso % (Auto) 0 Neut # (Auto) 8.8 H Lymph # (Auto) 2.7 [place] # (Auto) 0.8 Eos # (Auto) 0.0 Baso # (Auto) 0.0 Immature Gran # (Auto) 0.03 H Absolute Nucleated RBC 0.00 Immature Gran % 0 Nucleated RBC % 0 PT 13.5 H INR 1.3 APTT Puncture Site ABG pH ABG pCO2 ABG pO2 ABG HCO3 ABG O2 Saturation ABG Base Excess FiO2 Sodium 144 146 H Potassium 3.6 D 3.3 L Chloride 108 H 110 H Carbon Dioxide 24.1 24.1 Anion Gap 12 12 BUN < 5 L < 5 L Creatinine 0.7 D 0.7 Estim Creat Clear Calc 87.9 87.9 eGFR > 60 > 60 BUN/Creatinine Ratio 7 L 7 L Glucose [address] Glu mg/dL Hemoglobin A1c Calculated Osmolality 284 286 Lactic Acid 1.7 Calcium 8.0 L 7.9 L Corrected Calcium 8.2 L 8.4 L Phosphorus 2.0 L 2.6 Magnesium 1.8 Total Bilirubin 1.3 H D AST 25 ALT 16 Alkaline Phosphatase 71 D Lactate Dehydrogenase Troponin I B-Natriuretic Peptide Total Protein 5.3 L Albumin 3.7 D 3.4 L Globulin 1.9 L Albumin/Globulin Ratio 1.8 Triglycerides 62 Cholesterol 86 L LDL Cholesterol, Calc 35 HDL Cholesterol 39 L Cholesterol/HDL Ratio 2.2 L Lipase Beta-Hydroxybutyrate/Acetoacetate 1.0 H Procalcitonin TSH 1.09 Beta HCG, Quant Ur Collection Type Urine Color Urine Clarity Urine pH Ur Specific [place] Urine Protein Urine Glucose (UA) Urine Ketones Urine Blood Urine Nitrite Urine Bilirubin Urine Urobilinogen (Auto) Ur Leukocyte Esterase Urine RBC Urine WBC Ur Squamous Epith Cells Urine Bacteria Hyaline Casts Ur Culture Indicated? Urine Opiates Screen Urine Fentanyl Screen Ur Barbiturates Screen U Amphetamin/Meth Scrn U Benzodiazepines Scrn U Cocaine Metab Screen U Marijuana (THC) Screen ABG Interpretation ABG results: 06/11/24 20:20 ABG pH 7.44 ABG pCO2 36 ABG pO2 92 ABG HCO3 24 ABG O2 Saturation 98 ABG Base Excess 1 Quality Measures Quality Measures none Assessment & Plan Assessment Current Active Medications: Generic Name Dose Route Start Last Admin Trade Name Freq PRN Reason Stop Dose Admin Acetaminophen 650 mg 06/12/24 07:45 Acetaminophen 325 Mg Tablet PO 07/11/24 20:13 Q6H PRN Pain 1-3 Or Fever > 99 Heparin Sodium (Porcine) 5,000 unit 06/11/24 22:00 06/12/24 05:13 Heparin Sod Inj 5000 Unit/Ml Vial SC 06/25/24 21:59 Not Given Q8HR MATTY Ceftriaxone Sodium/Dextrose 1 gm in 50 mls @ 100 mls/hr 06/12/24 09:00 06/12/24 09:12 Rocephin/D5w 1gm Iv Premix IV 06/19/24 08:59 100 mls/hr QDAY MATTY Administration Doxycycline Hyclate 100 mg/ 100 mls @ 100 mls/hr 06/12/24 09:00 06/12/24 09:47 Sodium Chloride IV 06/19/24 08:59 100 mls/hr BID MATTY Administration Magnesium Sulfate 4 gm in 50 mls @ 12.5 mls/hr 06/12/24 07:47 06/12/24 08:06 Magnesium Sulfate Ivpb IV 06/12/24 11:46 12.5 mls/hr X1 ONE Administration Lamotrigine 25 mg 06/12/24 09:00 06/12/24 09:43 Lamotrigine 25 Mg Chew PO 07/12/24 08:59 25 mg BID MATTY Administration Levetiracetam 500 mg 06/11/24 23:59 06/12/24 09:44 Levetiracetam Inj 100 Mg/Ml Vial 5ml IVP 07/11/24 23:58 500 mg Q12HR MATTY Administration Lorazepam 2 mg 06/12/24 08:14 Lorazepam 2 Mg/Ml Vial IVP 06/17/24 08:13 Q5M PRN sezuire Ondansetron HCl 4 mg 06/11/24 20:14 06/12/24 09:12 Ondansetron Inj 2 Mg/Ml Inj 2 Ml IV 07/11/24 20:13 4 mg Q6H PRN Administration NAUSEA OR VOMITING Protocol Sennosides 2 tab 06/11/24 20:14 Senna Tablet PO 07/11/24 20:13 BID PRN CONSTIPATION Protocol Plan 34-year-old female, past medical history of seizure disorders, brought to the emergency room via EMS after multiple episodes of witnessed tonic-clonic seizures. #Seizure disorder Per family, patient has been having seizures since the age of 6 months and has been on both Keppra and lamotrigine Per mother, patient does not tolerate Keppra very well and apparently has headaches secondary to the medication. Presented with multiple episodes of generalized tonic-clonic seizures, received midazolam 2.5 mg en route to EMS History of missing home medications including lamotrigine secondary to gap in insurance coverage. Received loading dose of Keppra in the ER. Initial CT showed acute and chronic sinusitis but no other acute process noted Plan: Levetiracetam 500 mg IV twice daily Restarted patient's lamotrigine 25 mg p.o. twice daily EEG ordered Neurology consult to Dr. Burleson, appreciate recommendations Seizure precautions in place IV Ativan 2 mg as needed for seizures #Dysphagia Per family, patient's been having dysphagia for the past +1 week Patient states that she has dysphagia to both solids and liquids and states that she feels like food is getting stuck in her esophagus Patient denies any regurgitation, halitosis, difficulty initiating swallowing or GERD like symptoms Speech eval recommended dysphagia 3 diet Plan: Modified barium swallow study ordered N.p.o. after midnight Will consult GI if the patient dysphagia persists for further workup #Aspiration Pneumonia #Acute sinusitis Per father patient had no history of fever leading up to the episode of seizures, no reported cough, or headache. Chest x-ray suspicious for right upper lobe pneumonia Patient did have 1 episode of vomiting while she was being transferred from the CT scan. Possible aspiration pneumonia. Plan: IV ceftriaxone 1 g daily IV doxycyline 100mg BID Aspiration precautions in place Follow blood cultures, #Lactic acidosis?now resolved #High anion gap metabolic acidosis?now resolved Likely 14, CO2 less than 10, likely related to seizures, reported improvement in lactic acid after IV fluid boluses, received 3 L IV fluid boluses patient has no history of diabetes mellitus, A1c 4.8, initial glucose 204, repeat lactic acid 1.7. BHB 1.0, Pro-Connor 0.04, ABG was ordered which showed resolution of acidosis. IV fluid resuscitation completed, diet started Plan: Replete electrolytes as needed Follow-up with morning labs Hospital Management: Disposition: neuro recs, admit to tele, DVT prophylaxis: Heparin subcut GI prophylaxis: none Diet: Dysphagia 3 diet Lines: PIV CODE STATUS: Full Patient seen and examined with attending Dr. Ed Millan, PGY-1
--- NOTE | 2024-06-12 22:22 | PD.NEUROCONS ---
History of Present Illness Data of Consult Requesting Physician: Klaus Arevalo MD Primary Care Provider: Physician No Primary/Family Consult Narrative History of present illness: Ms. Akbar is a 34-year-old female with history of seizure disorder was brought to the ER by paramedics after having multiple episodes of witnessed generalized tonic-clonic seizures per family. She has a history of noncompliance with medications. Her seizure frequency has gotten worse lately: 4 times a week, most of the seizures were generalized tonic-clonic convulsions with loss of consciousness. As she had several episodes of witnessed generalized tonic-clonic convulsions without regaining consciousness fully, she was brought to the ER by paramedics and subsequently got admitted to telemetry. She did have another episode this morning lasted for 5 minutes with urinary incontinence and loss of consciousness. She received benzodiazepine. No history of head injury, recent illnesses or drug abuse. She has not been lately and not taking her medications regularly. Workup in the ER vitals 96/70, temperature 100 F, sepsis alert was called by the ER. patient was given loading dose of Keppra 1000 mg x 1, patient continued to stay in postictal state labs: Chemistry profile : hypokalemia, glucose 204, A1c 4.8%, lactate 14 , bicarb < 10, BHB 1, Pro-Connor 0.04, beta-hCG < 1. Urinalysis shows 1+ protein, Imaging: Chest x-ray shows rt upper lobe pneumonia, CT head showed was limited study due to patient motion, showed no gross hemorrhage mass effect or midline shift, pertinent for acute sphenoid sinusitis, chronic left ethumoid and frontal sinusitis. Neurology was consulted to evaluate further for management intractable seizures cc:: cc: Klaus Arevalo MD Review of Systems Review of Systems Systems Reviewed: All systems reviewed, normal except as documented Past Medical History Past Medical History NEUROLOGIC: Positive Neurological Disorders and Seizures CARDIAC: Negative Congestive Heart Failure RESPIRATORY: Negative Chronic Obstructive Pulmonary Disease (COPD) GENITOURINARY: Negative Renal Disease ENDOCRINE: Negative Diabetes Mellitus Type 1 or Diabetes Mellitus Type 2 Family History FAMILY HISTORY: Positive Family Neurologic Problems (father has seizures) Social History SMOKING STATUS: Unknown if ever smoked SUBSTANCE USE: marijuana Meds Home Medications and Allergies Home Medications ?Medication ?Instructions ?Recorded ?Confirmed ?Type lamotrigine 25 mg tablet 25 mg PO BID 06/12/24 06/12/24 History levetiracetam 500 mg tablet 500 mg PO BID 06/12/24 06/12/24 History Allergies Allergy/AdvReac Type Severity Reaction Status Date / Time No Known Allergies Allergy Verified 06/11/24 16:40 Exam - Neurology Vital Signs Temp Pulse Resp BP Pulse Ox O2 Del Method O2 Flow Rate 98.0 F 70 17 91/56 L 97 Room Air 2 06/12/24 20:00 06/12/24 20:00 06/12/24 20:00 06/12/24 20:00 06/12/24 20:00 06/12/24 20:00 06/11/24 17:11 Narrative Exam GENERAL APPEARANCE: Well hydrated, well-nourished in no acute distress. HEENT: Normocephalic, atraumatic, extraocular movements intact. Pupils: Equal reacting to light and accommodation NECK: Supple, no JVD or bruits. CARDIOVASULAR: Heart: S1, S2 heard, regular without S3-S4 or murmur no rubs or gallops. LUNGS/CHEST: Clear to auscultation bilaterally. No rails, rhonchi, or wheezing. Normal inspection. ABDOMEN: Soft, nontender, with normal bowel sounds. No pulsatile masses. No rebound, rigidity, or guarding. Normal inspection and palpation. EXTREMITIES: Normal inspection and palpation. No edema, clubbing or cyanosis. SKIN: Warm and dry without rashes. Normal inspection. MUSCULOSKELETAL: No cervical, thoracic, lumbar or midline bony tenderness. Normal inspection. NEURO: Alert, awake and oriented x3. Cranial nerves: II through XII grossly intact. Speech and language: Normal with no dysarthria or dysphasia. Motor system: Tone and bulk: Normal: Strength: 5 out of 5 in all 4 extremities; No pronator drift noted. Deep tendon reflexes: 2+ bilaterally symmetrical. Plantar reflex: Downgoing bilaterally. Sensory system: Intact to all modalities of sensation bilaterally. Coordination: Intact to hyjspy-axzb-fqyic and bypw-csnn-qmpv test bilaterally. No ataxia, no dysmetria, or dysdiadochokinesia noted. No intention tremors noted. Gait: Normal. Toe, heel, tandem walk all are normal. Romberg: Negative. No signs of meningeal irritation noted. PSYCHIATRIC: Normal mood and affect. Results Labs 06/12/24 06:17 06/12/24 06:17 Labs: Short CBC 06/12/24 Range/Units 06:17 WBC 12.4 H (3.6-11.0) Thou/mm3 Hgb 11.0 L D (12.0-16.0) g/dL Hct 32.0 L D (36.0-46.0) % Plt Count 228 D (140-440) Thou/mm3 BMP 06/12/24 06:17 Sodium 146 H Potassium 3.3 L Chloride 110 H Carbon Dioxide 24.1 BUN < 5 L Creatinine 0.7 Glucose 87 Calcium 7.9 L Liver Function 06/12/24 Range/Units 06:17 Total Bilirubin 1.3 H D (0.3-1.2) mg/dL AST 25 (0-34) U/L ALT 16 (10-49) U/L Alkaline Phosphatase 71 D (46-116) U/L Albumin 3.4 L (3.5-5.0) gm/dL ABG Interpretation ABG results: 06/11/24 20:20 ABG pH 7.44 ABG pCO2 36 ABG pO2 92 ABG HCO3 24 ABG O2 Saturation 98 ABG Base Excess 1 Assessment & Plan Assessment and plan (1) Intractable seizure disorder: Status: Acute Assessment and plan: Patient had a breakthrough seizure this morning lasted for 5 minutes that was witnessed by the family and the staff at the bedside. Given benzodiazepine and continued with Keppra. Patient complains of headache at a grade of 10/10 despite taking ibuprofen. Reassurance given to the patient that the headache is most likely a postictal phenomena and should improve with time and better sleep. continue with the Keppra, but increase the dose to 750 mg twice a day and continue with Lamictal 25 mg twice a day. EEG showed abnormal study with paroxysmal slowing and interictal epileptiform discharges in both anterior temporal, central and temporal areas consistent with seizures. No electrographic seizures noted. Will follow-up with the brain MRI contrast. Continue with the seizure precautions and avoid seizure triggers. Discussed with her the importance of medication compliance to prevent recurrence.
[2024-06-13] VITALS (8 sets, daily range): BP systolic 98–116; BP diastolic 59–79; PULSE 58–88; RESP 14–99; TEMP 36.1–36.7; O2SAT 99–100; BMI 20.2; BMI 20.4
--- NOTE | 2024-06-13 03:10 | PC.NURSE ---
notifed Dr. Rivas of patient's heartrate bradycardia, low as 46. Currently 61
[2024-06-13 06:26] LABS: Basophils # (Auto) 0.1 Thou/mm3 (0.0-0.2); Basophils % (Auto) 1 % (0-2.5); Eosinophils % (Auto) 1 % (0-10); Hematocrit 36.5 % (36.0-46.0); Hemoglobin 12.1 g/dL (12.0-16.0); Immature Granulocytes % (Auto) 0 % (0-0); Immature Granulocytes Auto 0.01 Thou/mm3 (0.00-0.00); Lymphocytes # (Auto) 1.9 Thou/mm3 (1.0-4.8); Lymphocytes % (Auto) 32 % (10-50); Mean Corpuscular HGB Conc 33.2 g/dl (31.0-37.0); Mean Corpuscular Hemoglobin 29.3 pg (25.0-35.0); Mean Corpuscular Volume 88 fL (80-100); Monocytes # (Auto) 0.5 Thou/mm3 (0.0-0.8); Monocytes % (Auto) 8 % (0-12); Neutrophils # (Auto) 3.4 Thou/mm3 (1.8-7.7); Neutrophils % (Auto) 58 % (37-80); Nucleated Red Blood Cell % 0 /100 WBC (0); Platelet Count 219 Thou/mm3 (140-440); RDW Standard Deviation 43.2 fL (36.4-46.3); Red Blood Count 4.13 Miln/mm3 (4.00-5.20); White Blood Count 5.8 Thou/mm3 (3.6-11.0)
[2024-06-13 06:47] LABS: Alanine Aminotransferase 14 U/L (10-49); Albumin, Serum 3.7 gm/dL (3.5-5.0); Albumin/Globulin Ratio 1.6 (1.2-2.2); Alkaline Phosphatase 73 U/L (46-116); Anion Gap 11 (7-16); Aspartate Amino Transferase 22 U/L (0-34); BUN/Creatinine Ratio 6 Ratio (12-20); Bilirubin,Total 0.8 mg/dL (0.3-1.2); Blood Urea Nitrogen < 5 mg/dL (9-23); Calcium 8.6 mg/dL (8.3-10.6); Calcium (Corrected) 8.8 mg/dL (8.5-10.1); Carbon Dioxide 25.2 mMol/L (20.0-31.0); Chloride 109 mMol/L (98-107); Creatinine (Component) 0.8 mg/dL (0.6-1.3); Estimated Creatinine Clearance 76.9 mL/min (>60); Globulin 2.3 gm/dL (2.3-3.5); Glucose 86 mg/dL (74-106); Magnesium 1.8 mg/dL (1.6-2.6); Osmolality,Calculated 284 (275-295); Phosphorous 2.5 mg/dL (2.4-5.1); Potassium 4.1 mMol/L (3.4-5.1); Sodium 145 mMol/L (136-145); eGFR > 60 See Note
[2024-06-13] MEDS: lamoTRIgine 25 MG CHEW PO ×2 (09:20→20:33)
[2024-06-13] MEDS: DOXYCYCLINE INJ 100 MG in SODIUM CHLORIDE 0.9% (POP) 100 ML IV ×2 (09:20→20:35)
[2024-06-13] MEDS: levETIRAcetam INJ 100 MG/ML VIAL 5ML 500 MG IVP (09:20)
[2024-06-13] MEDS: cefTRIAXone/D5w 1gm IV premix 1 GM/50 ML BAG IV (09:21)
[2024-06-13] MEDS: LORazepam 2 MG/ML VIAL IVP ×2 (10:35→10:39)
--- NOTE | 2024-06-13 10:40 | CHAP ---
Responded to Rapid Response. No need for mud grinder was expressed. I've said a silent prayer.
[2024-06-13] MEDS: KETOROLAC INJ 30 MG/ML VIAL 15 MG IVP (11:12)
--- NOTE | 2024-06-13 11:22 | PC.SS ---
SS met with patient who is alert/oriented. Patient was able to verify demographics. Patient admitted for seizures. Patient resides with parents. Hx: seizures. Patient is independent with ADL's. No DME. Patient states she's seen Dr. Burleson prior but they no longer take her insurance and require a referral from PCP. PCP: JJ and last appt. was a week ago. Patient does not see any other physicians. Patient verbalized her mother as the alt medical decision maker. D/c plan: home. Alt medical decision maker: Mother, Jennifer, . Patient had a rapid response this morning. Pending speech eval
--- NOTE | 2024-06-13 11:27 | RESP.EEG ---
PLACED EEG ON PT FOR A [address] Batista
--- NOTE | 2024-06-13 14:41 | ESPR_ITS ---
Documentation for date of: 06/13/24 Subjective Subjective Interval history: 06/13/2024: Overnight the patient was bradycardic with a heart rate of 40 but was asymptomatic. This morning, there was a rapid response called for the patient for breakthrough seizure; moreover, after 4 mg Ativan patient's seizures broke. Neurology recommends repeating EEG and following up on brain MRI with contrast. Prior to the breakthrough seizure, patient apparently was ambulating and had a witnessed fall on her knees;, was complaining of some knee pain. Will reassess the patient once seizure medications are addressed. At this time, the patient's family, especially father, believes that the Keppra is a trigger for the patient's seizure. Told patient's family that neurology will answer the questions regarding this. Will continue patient's lamotrigine at this time and await for neurology recommendations regarding continuing Keppra. Will continue monitor the patient for any acute changes. Exam Vital Signs Temp Pulse Resp BP Pulse Ox O2 Del Method O2 Flow Rate 97.3 F 73 19 112/69 99 Nasal Cannula 4 06/13/24 12:00 06/13/24 12:00 06/13/24 12:00 06/13/24 12:00 06/13/24 12:00 06/13/24 12:00 06/13/24 12:00 Narrative Exam Physical Exam: GENERAL: Somnolent, appears stated age HEENT: NC/AT. Moist mucosa. PERRLA/EOMI. CARDIO: Heart RRR, no obvious murmurs, no JVD. PULM: No coughing or visible SOB. Lungs CTA B/L. GI: Abdomen soft, NT/ND, +BS. SKIN/MSK/EXT: No wounds/discoloration/rashes/edema/amputations noted. +Pedal pulses present B/L. NEURO: Oriented x3, Moves extremities x4, no focal neurologic deficits noted Objective Labs 06/13/24 05:48 06/13/24 05:48 Labs: Laboratory Results - last 24 hr 06/13/24 05:48 WBC 5.8 D RBC 4.13 Hgb 12.1 Hct 36.5 MCV 88 MCH 29.3 MCHC 33.2 RDW Std Deviation 43.2 Plt Count 219 Neut % (Auto) 58 Lymph % (Auto) 32 [place] % (Auto) 8 Eos % (Auto) 1 Baso % (Auto) 1 Neut # (Auto) 3.4 Lymph # (Auto) 1.9 [place] # (Auto) 0.5 Eos # (Auto) 0.0 Baso # (Auto) 0.1 Immature Gran # (Auto) 0.01 H Absolute Nucleated RBC 0.00 Immature Gran % 0 Nucleated RBC % 0 Sodium 145 Potassium 4.1 D Chloride 109 H Carbon Dioxide 25.2 Anion Gap 11 BUN < 5 L Creatinine 0.8 Estim Creat Clear Calc 76.9 eGFR > 60 BUN/Creatinine Ratio 6 L Glucose 86 Calculated Osmolality 284 Calcium 8.6 Corrected Calcium 8.8 Phosphorus 2.5 Magnesium 1.8 Total Bilirubin 0.8 D AST 22 ALT 14 Alkaline Phosphatase 73 Total Protein 6.0 Albumin 3.7 Globulin 2.3 Albumin/Globulin Ratio 1.6 ABG Interpretation ABG results: 06/11/24 20:20 ABG pH 7.44 ABG pCO2 36 ABG pO2 92 ABG HCO3 24 ABG O2 Saturation 98 ABG Base Excess 1 Quality Measures Quality Measures none Assessment & Plan Assessment Current Active Medications: Generic Name Dose Route Start Last Admin Trade Name Freq PRN Reason Stop Dose Admin Acetaminophen 650 mg 06/12/24 07:45 06/12/24 18:08 Acetaminophen 325 Mg Tablet PO 07/11/24 20:13 650 mg Q6H PRN Administration Pain 1-3 Or Fever > 99 Heparin Sodium (Porcine) 5,000 unit 06/11/24 22:00 06/13/24 05:02 Heparin Sod Inj 5000 Unit/Ml Vial SC 06/25/24 21:59 Not Given Q8HR MATTY Ceftriaxone Sodium/Dextrose 1 gm in 50 mls @ 100 mls/hr 06/12/24 09:00 06/13/24 09:21 Rocephin/D5w 1gm Iv Premix IV 06/19/24 08:59 100 mls/hr QDAY MATTY Administration Doxycycline Hyclate 100 mg/ 100 mls @ 100 mls/hr 06/12/24 09:00 06/13/24 09:20 Sodium Chloride IV 06/19/24 08:59 100 mls/hr BID MATTY Administration Ketorolac Tromethamine 15 mg 06/13/24 11:02 Ketorolac Inj 30 Mg/Ml Vial IVP 06/18/24 11:01 Q6HR PRN Pain 4-10 Lamotrigine 25 mg 05/04/25 09:00 06/13/24 09:20 Lamotrigine 25 Mg Chew PO 07/12/24 08:59 25 mg BID MATTY Administration Levetiracetam 750 mg 06/13/24 21:00 Levetiracetam Inj 100 Mg/Ml Vial 5ml IVP 07/13/24 20:59 Q12HR MATTY Lorazepam 2 mg 06/12/24 08:14 06/13/24 10:35 Lorazepam 2 Mg/Ml Vial IVP 06/17/24 08:13 2 mg Q5M PRN Administration sezuire Ondansetron HCl 4 mg 06/11/24 20:14 06/12/24 09:12 Ondansetron Inj 2 Mg/Ml Inj 2 Ml IV 07/11/24 20:13 4 mg Q6H PRN Administration NAUSEA OR VOMITING Protocol Sennosides 2 tab 06/11/24 20:14 Senna Tablet PO 07/11/24 20:13 BID PRN CONSTIPATION Protocol Plan 34-year-old female, past medical history of seizure disorders, brought to the emergency room via EMS after multiple episodes of witnessed tonic-clonic seizures. #Seizure disorder Per family, patient has been having seizures since the age of 6 months and has been on both Keppra and lamotrigine Per mother, patient does not tolerate Keppra very well and apparently has headaches secondary to the medication. Presented with multiple episodes of generalized tonic-clonic seizures, received midazolam 2.5 mg en route to EMS History of missing home medications including lamotrigine secondary to gap in insurance coverage. Received loading dose of Keppra in the ER. Initial CT showed acute and chronic sinusitis but no other acute process noted Initial EEG showed paroxysmal multifocal slowing and questionable spike and wave discharges in both anterior temporal, central and temporal areas consistent with seizure disorder Plan: Will hold Keppra at this time, will restart when neurology provides recommendations Continue patient's lamotrigine 25 mg p.o. twice daily EEG ordered, repeat Neurology consult to Dr. Burleson, appreciate recommendations Seizure precautions in place IV Ativan 2 mg as needed for seizures #Dysphagia Per family, patient's been having dysphagia for the past +1 week Patient states that she has dysphagia to both solids and liquids and states that she feels like food is getting stuck in her esophagus Patient denies any regurgitation, halitosis, difficulty initiating swallowing or GERD like symptoms Speech eval recommended dysphagia 3 diet Plan: Modified barium swallow study ordered Restarted dysphagia 3 diet Will consult GI if the patient dysphagia persists for further workup #Aspiration Pneumonia #Acute sinusitis Per father patient had no history of fever leading up to the episode of seizures, no reported cough, or headache. Chest x-ray suspicious for right upper lobe pneumonia Patient did have 1 episode of vomiting while she was being transferred from the CT scan. Possible aspiration pneumonia. Blood cultures no growth within 24 hours Plan: IV ceftriaxone 1 g daily IV doxycyline 100mg BID Aspiration precautions in place #Lactic acidosis?now resolved #High anion gap metabolic acidosis?now resolved Likely 14, CO2 less than 10, likely related to seizures, reported improvement in lactic acid after IV fluid boluses, received 3 L IV fluid boluses patient has no history of diabetes mellitus, A1c 4.8, initial glucose 204, repeat lactic acid 1.7. BHB 1.0, Pro-Connor 0.04, ABG was ordered which showed resolution of acidosis. IV fluid resuscitation completed, diet started Plan: Replete electrolytes as needed Follow-up with morning labs Hospital Management: Disposition: neuro recs, admit to tele, DVT prophylaxis: Heparin subcut GI prophylaxis: none Diet: Dysphagia 3 diet Lines: PIV CODE STATUS: Full Patient seen and examined with attending Dr. Ed Millan, PGY-1
[2024-06-13] MEDS: HEPARIN SOD INJ 5000 UNIT/ML VIAL SC ×2 (14:53→21:42)
--- NOTE | 2024-06-13 16:14 | PD.RESEVENT ---
Documentation for date of: 06/13/24 Event Note Event Note: 06/13/2024: Rapid response called sometime around 10:30 AM for patient having breakthrough seizures and could not convulsing very similar to previous rapid response/breakthrough seizure. Patient was not left decubitus position rotating from right to left. On assessment, patient's airway/breathing/circulation intact; vitals within normal limits. Patient was given times two 2 mg IV Ativan within 3 minutes per dose; moreover, upon the second dose patient's seizure terminated. Neurology updated regarding the patient's status; moreover, recommendation is to obtain an EEG and to follow-up on results. Neurology will reassess the patient and recommend antiseizure medication, dose adjustments. Will continue to monitor for any acute changes. John Millan, PGY-1
--- NOTE | 2024-06-13 17:13 | PD.RESPRO ---
Documentation for date of: 06/13/24 Subjective Subjective Interval history: Patient was seen and examined by the bedside. Rapid response called at approximately 10:30 AM for patient having breakthrough seizure, patient was flexing her lower extremities laying in the left lateral decubitus position, received lorazepam IV x2. Started continuous EEG monitoring. Spoke with the family, patient has been experiencing stress due to family problems, burden of raising the child and being disabled. Her biological father at the bedside, concerned regarding prolonged seizures and connection between Keppra and headaches. Asked multiple questions regarding whether or not patient will require increased Keppra use, connection between Keppra and headache and marijuana use for headache. Explained that seizures could be also triggered by stress. Reassured that there's unlikely that Keppra is causing headaches and that there are could be multiple reasons for headache. Will hold Keppra for 24 hours in the setting of continuos EEG monitoring. Exam Vital Signs Temp Pulse Resp BP Pulse Ox O2 Del Method O2 Flow Rate 97.0 F 71 18 99/62 100 Room Air 4 06/13/24 16:00 06/13/24 16:06/13/24 16:06/13/24 16:06/13/24 16:06/13/24 16:00 06/13/24 12:00 Narrative Exam Gen: Well-developed and well-nourished. HEENT: NCAT, PERRLA, EOMI, MMM, anicteric conjunctivae. CVS: normal S1 and S2. RRR. No M/R/G. Resp: CTA B/L. No rhonchi, rales, crackles or wheezing. Abd: soft, non-tender, non-distended. BS+ in all 4 quadrants. MSK: Good ROM in BUE & BLE. No edema or rash. Neuro: CN II-XII grossly intact. Strength 5/5 in BUE & BLE. Mild numbness on the lateral side of the left ankle and left foot. Mild plantar flexion weakness. Alert and oriented x3. Psych: appropriate mood and affect. Objective Labs 06/15/24 05:29 06/14/24 05:43 Labs: Laboratory Results - last 24 hr 06/13/24 05:48 WBC 5.8 D RBC 4.13 Hgb 12.1 Hct 36.5 MCV 88 MCH 29.3 MCHC 33.2 RDW Std Deviation 43.2 Plt Count 219 Neut % (Auto) 58 Lymph % (Auto) 32 [place] % (Auto) 8 Eos % (Auto) 1 Baso % (Auto) 1 Neut # (Auto) 3.4 Lymph # (Auto) 1.9 [place] # (Auto) 0.5 Eos # (Auto) 0.0 Baso # (Auto) 0.1 Immature Gran # (Auto) 0.01 H Absolute Nucleated RBC 0.00 Immature Gran % 0 Nucleated RBC % 0 Sodium 145 Potassium 4.1 D Chloride 109 H Carbon Dioxide 25.2 Anion Gap 11 BUN < 5 L Creatinine 0.8 Estim Creat Clear Calc 76.9 eGFR > 60 BUN/Creatinine Ratio 6 L Glucose 86 Calculated Osmolality 284 Calcium 8.6 Corrected Calcium 8.8 Phosphorus 2.5 Magnesium 1.8 Total Bilirubin 0.8 D AST 22 ALT 14 Alkaline Phosphatase 73 Total Protein 6.0 Albumin 3.7 Globulin 2.3 Albumin/Globulin Ratio 1.6 ABG Interpretation ABG results: 06/11/24 20:20 ABG pH 7.44 ABG pCO2 36 ABG pO2 92 ABG HCO3 24 ABG O2 Saturation 98 ABG Base Excess 1 Quality Measures Quality Measures VTE prophylaxis Assessment & Plan Assessment Current Active Medications: Generic Name Dose Route Start Last Admin Trade Name Freq PRN Reason Stop Dose Admin Acetaminophen 650 mg 06/12/24 07:45 06/12/24 18:08 Acetaminophen 325 Mg Tablet PO 07/11/24 20:13 650 mg Q6H PRN Administration Pain 1-3 Or Fever > 99 Heparin Sodium (Porcine) 5,000 unit 06/11/24 22:00 06/13/24 14:53 Heparin Sod Inj 5000 Unit/Ml Vial SC 06/25/24 21:59 5,000 unit Q8HR MATTY Administration Ceftriaxone Sodium/Dextrose 1 gm in 50 mls @ 100 mls/hr 06/12/24 09:00 06/13/24 09:21 Rocephin/D5w 1gm Iv Premix IV 06/19/24 08:59 100 mls/hr QDAY MATTY Administration Doxycycline Hyclate 100 mg/ 100 mls @ 100 mls/hr 06/12/24 09:00 06/13/24 09:20 Sodium Chloride IV 06/19/24 08:59 100 mls/hr BID MATTY Administration Ketorolac Tromethamine 15 mg 06/13/24 11:02 Ketorolac Inj 30 Mg/Ml Vial IVP 06/18/24 11:01 Q6HR PRN Pain 4-10 Lamotrigine 25 mg 06/12/24 09:00 06/13/24 09:20 Lamotrigine 25 Mg Chew PO 07/12/24 08:59 25 mg BID MATTY Administration Levetiracetam 750 mg 06/13/24 21:00 Levetiracetam Inj 100 Mg/Ml Vial 5ml IVP 07/13/24 20:59 Q12HR MATTY Lorazepam 2 mg 06/12/24 08:14 06/13/24 10:35 Lorazepam 2 Mg/Ml Vial IVP 06/17/24 08:13 2 mg Q5M PRN Administration sezuire Ondansetron HCl 4 mg 06/11/24 20:14 06/12/24 09:12 Ondansetron Inj 2 Mg/Ml Inj 2 Ml IV 07/11/24 20:13 4 mg Q6H PRN Administration NAUSEA OR VOMITING Protocol Sennosides 2 tab 06/11/24 20:14 Senna Tablet PO 07/11/24 20:13 BID PRN CONSTIPATION Protocol Plan The patient is a 34-year-old female, past medical history of seizure disorders, brought to the emergency room via EMS after multiple episodes of witnessed tonic-clonic seizures. #Seizure disorder Patient has a history of seizures that were previously controlled. She was not compliant with medication in the last few months and has been experiencing stress at home. She also has been smoking marijuana daily and drinks alcohol (vodka shots) few times a week. 06/13/24 patient had prolonged seizure (more than 2 min) with flexion of lower extremities and rotating her body. There's a concern for possible PNES in the setting of stress. Plan: - continous EEG monitoring started - holding Keppra for 24 hours in the setting of EEG monitoring - seizure precautions - aspiration precautions - will plan further after having results of EEG - continue lamotrigine 25 mg BID #Headache Patient reports continuous headaches, which usually appear after seizures. Could be in the setting of postictal phenomena, stress, medication overuse. Plan: - patient was educated on the nature of possible causes of headache - nsaids as needed, avoid overuse #Dysphagia #Aspiration Pneumonia #Acute sinusitis #Lactic acidosis?now resolved #High anion gap metabolic acidosis?now resolved - management per primary team Plan of care discussed with attending Dr. Burleson. Nuha Serrano MD, PGY 1. Attending Provider Attestation/Addendum Patient was seen and examined at the bedside and I agree with the residents findings, assessment and plan of care. Will hold off on Keppra as family is concerned that Keppra is triggering her seizures and headache and not able to tolerate. Will keep her on Lamictal and follow-up with the continuous EEG results.
[2024-06-13] MEDS: ACETAMINOPHEN 325 MG TABLET 650 MG PO (20:34)
[2024-06-13] MEDS: ONDANSETRON INJ 2 MG/ML INJ 2 ML 4 MG IV (20:34)
[2024-06-13] MEDS: KETOROLAC INJ 30 MG/ML VIAL IVP (21:42)
--- NOTE | 2024-06-13 21:45 | PC.NURSE ---
pt family had question of recording patient during seizures per their conversation with MD [place]. family notified that [employer] does not record, and recording devices are not allowed in hospital per policy but staff members are able to use hospital approved ipad. also reinforced plan of care for patient per MD [place] notes with family. family happily agreed to plan.
[2024-06-14] VITALS (7 sets, daily range): BP systolic 93–107; BP diastolic 53–63; PULSE 61–100; RESP 13–99; TEMP 36.2–36.5; O2SAT 98–100; BMI 19.8
[2024-06-14] MEDS: HEPARIN SOD INJ 5000 UNIT/ML VIAL SC ×2 (06:18→14:28)
[2024-06-14 06:21] LABS: Basophils % (Auto) 1 % (0-2.5); Eosinophils # (Auto) 0.1 Thou/mm3 (0.0-0.5); Eosinophils % (Auto) 1 % (0-10); Hematocrit 36.6 % (36.0-46.0); Hemoglobin 12.4 g/dL (12.0-16.0); Immature Granulocytes % (Auto) 0 % (0-0); Immature Granulocytes Auto 0.01 Thou/mm3 (0.00-0.00); Lymphocytes % (Auto) 35 % (10-50); Mean Corpuscular HGB Conc 33.9 g/dl (31.0-37.0); Mean Corpuscular Hemoglobin 28.8 pg (25.0-35.0); Mean Corpuscular Volume 85 fL (80-100); Monocytes # (Auto) 0.4 Thou/mm3 (0.0-0.8); Monocytes % (Auto) 7 % (0-12); Neutrophils # (Auto) 3.3 Thou/mm3 (1.8-7.7); Neutrophils % (Auto) 57 % (37-80); Nucleated Red Blood Cell % 0 /100 WBC (0); Platelet Count 229 Thou/mm3 (140-440); RDW Standard Deviation 41.5 fL (36.4-46.3); Red Blood Count 4.31 Miln/mm3 (4.00-5.20); White Blood Count 5.8 Thou/mm3 (3.6-11.0)
[2024-06-14 06:40] LABS: Alanine Aminotransferase 13 U/L (10-49); Albumin, Serum 3.9 gm/dL (3.5-5.0); Albumin/Globulin Ratio 1.7 (1.2-2.2); Alkaline Phosphatase 73 U/L (46-116); Anion Gap 12 (7-16); Aspartate Amino Transferase 19 U/L (0-34); BUN/Creatinine Ratio 6 Ratio (12-20); Bilirubin,Total 0.7 mg/dL (0.3-1.2); Blood Urea Nitrogen 5 mg/dL (9-23); Calcium 8.7 mg/dL (8.3-10.6); Calcium (Corrected) 8.8 mg/dL (8.5-10.1); Carbon Dioxide 23.5 mMol/L (20.0-31.0); Chloride 107 mMol/L (98-107); Creatinine (Component) 0.8 mg/dL (0.6-1.3); Estimated Creatinine Clearance 73.4 mL/min (>60); Globulin 2.3 gm/dL (2.3-3.5); Glucose 70 mg/dL (74-106); Osmolality,Calculated 278 (275-295); Potassium 4.3 mMol/L (3.4-5.1); Sodium 142 mMol/L (136-145); Total Protein 6.2 gm/dL (5.7-8.2); eGFR > 60 See Note
[2024-06-14] MEDS: ACETAMINOPHEN 325 MG TABLET 650 MG PO (07:32)
[2024-06-14 08:31] LABS: Magnesium 1.7 mg/dL (1.6-2.6)
[2024-06-14] MEDS: cefTRIAXone/D5w 1gm IV premix 1 GM/50 ML BAG IV (10:42)
[2024-06-14] MEDS: lamoTRIgine 25 MG CHEW PO ×2 (10:43→20:37)
[2024-06-14] MEDS: DOXYCYCLINE INJ 100 MG in SODIUM CHLORIDE 0.9% (POP) 100 ML IV ×2 (10:43→20:14)
--- NOTE | 2024-06-14 11:05 | ESPR_ITS ---
Documentation for date of: 06/14/24 Subjective Subjective Interval history: Patient was seen and examined by the bedside. Overnight no acute events, no seizures. EEG monitoring continues. Reports feeling generally weak and continues to have headache, located in the center of forehead, 8/10, worsens after seizures and stress. Just received Tylenol for pain, will report later if it helps. Exam Vital Signs Temp Pulse Resp BP Pulse Ox O2 Del Method O2 Flow Rate 97.6 F 100 17 96/62 100 Room Air 4 06/14/24 08:00 06/14/24 08:00 06/14/24 08:00 06/14/24 08:00 06/14/24 08:00 06/14/24 08:00 06/13/24 12:00 Narrative Exam Gen: Well-developed and well-nourished. HEENT: NCAT, PERRLA, EOMI, MMM, anicteric conjunctivae. CVS: normal S1 and S2. RRR. No M/R/G. Resp: CTA B/L. No rhonchi, rales, crackles or wheezing. Abd: soft, non-tender, non-distended. BS+ in all 4 quadrants. MSK: Good ROM in BUE & BLE. No edema or rash. Neuro: CN II-XII grossly intact. Strength 5/5 in BUE & BLE. Mild numbness on the lateral side of the left ankle and left foot. Mild plantar flexion weakness. Alert and oriented x3. Psych: appropriate mood and affect. Objective Labs 06/15/24 05:29 06/14/24 05:43 Labs: Laboratory Results - last 24 hr 06/14/24 05:43 WBC 5.8 RBC 4.31 Hgb 12.4 Hct 36.6 MCV 85 MCH 28.8 MCHC 33.9 RDW Std Deviation 41.5 Plt Count 229 Neut % (Auto) 57 Lymph % (Auto) 35 [place] % (Auto) 7 Eos % (Auto) 1 Baso % (Auto) 1 Neut # (Auto) 3.3 Lymph # (Auto) 2.0 [place] # (Auto) 0.4 Eos # (Auto) 0.1 Baso # (Auto) 0.0 Immature Gran # (Auto) 0.01 H Absolute Nucleated RBC 0.00 Immature Gran % 0 Nucleated RBC % 0 Sodium 142 Potassium 4.3 Chloride 107 Carbon Dioxide 23.5 Anion Gap 12 BUN 5 L Creatinine 0.8 Estim Creat Clear Calc 73.4 eGFR > 60 BUN/Creatinine Ratio 6 L Glucose 70 L Calculated Osmolality 278 Calcium 8.7 Corrected Calcium 8.8 Magnesium 1.7 Total Bilirubin 0.7 AST 19 ALT 13 Alkaline Phosphatase 73 Total Protein 6.2 Albumin 3.9 Globulin 2.3 Albumin/Globulin Ratio 1.7 ABG Interpretation ABG results: 06/11/24 20:20 ABG pH 7.44 ABG pCO2 36 ABG pO2 92 ABG HCO3 24 ABG O2 Saturation 98 ABG Base Excess 1 Quality Measures Quality Measures VTE prophylaxis Assessment & Plan Assessment Current Active Medications: Generic Name Dose Route Start Last Admin Trade Name Freq PRN Reason Stop Dose Admin Acetaminophen 650 mg 06/12/24 07:45 06/14/24 07:32 Acetaminophen 325 Mg Tablet PO 07/11/24 20:13 650 mg Q6H PRN Administration Pain 1-3 Or Fever > 99 Heparin Sodium (Porcine) 5,000 unit 06/11/24 22:00 06/14/24 06:18 Heparin Sod Inj 5000 Unit/Ml Vial SC 06/25/24 21:59 5,000 unit Q8HR MATTY Administration Ceftriaxone Sodium/Dextrose 1 gm in 50 mls @ 100 mls/hr 06/12/24 09:00 06/14/24 10:42 Rocephin/D5w 1gm Iv Premix IV 06/19/24 08:59 100 mls/hr QDAY MATTY Administration Doxycycline Hyclate 100 mg/ 100 mls @ 100 mls/hr 06/12/24 09:00 06/14/24 10:43 Sodium Chloride IV 06/19/24 08:59 100 mls/hr BID MATTY Administration Lamotrigine 25 mg 06/12/24 09:00 06/14/24 10:43 Lamotrigine 25 Mg Chew PO 07/12/24 08:59 25 mg BID MATTY Administration Levetiracetam 750 mg 06/13/24 21:00 Levetiracetam Inj 100 Mg/Ml Vial 5ml IVP 07/13/24 20:59 Q12HR MATTY Lorazepam 2 mg 06/12/24 08:14 06/13/24 10:35 Lorazepam 2 Mg/Ml Vial IVP 06/17/24 08:13 2 mg Q5M PRN Administration sezuire Ondansetron HCl 4 mg 06/11/24 20:14 06/13/24 20:34 Ondansetron Inj 2 Mg/Ml Inj 2 Ml IV 07/11/24 20:13 4 mg Q6H PRN Administration NAUSEA OR VOMITING Protocol Sennosides 2 tab 06/11/24 20:14 Senna Tablet PO 07/11/24 20:13 BID PRN CONSTIPATION Protocol Plan The patient is a 34-year-old female, past medical history of seizure disorders, brought to the emergency room via EMS after multiple episodes of witnessed tonic-clonic seizures. #Seizure disorder Patient has a history of seizures that were previously controlled. She was not compliant with medication in the last few months and has been experiencing stress at home. She also has been smoking marijuana daily and drinks alcohol (vodka shots) few times a week. 06/13/24 patient had prolonged seizure (more than 2 min) with flexion of lower extremities and rotating her body. There's a concern for possible PNES in the setting of stress. Plan: - continous EEG monitoring read pending - hold Kera for now - seizure precautions - aspiration precautions - continue lamotrigine 25 mg BID #Headache Patient reports continuous headaches, which usually appear after seizures. Could be in the setting of postictal phenomena, stress, medication overuse. 06/14/24: was given ketarol 60 mg+benadryl+reglan for headache. Was educated on medication overuse headache. Plan: - patient was educated on the nature of possible causes of headache - nsaids as needed, avoid overuse #Dysphagia #Aspiration Pneumonia #Acute sinusitis #Lactic acidosis?now resolved #High anion gap metabolic acidosis?now resolved - management per primary team Plan of care discussed with attending Dr. Burleson. Nuha Serrano MD, PGY 1. Attending Provider Attestation/Addendum Patient was seen and examined at the bedside and I agree with the residents findings, assessment and plan of care. Patient did not have any seizures overnight during the continuous EEG monitoring. Now she complains of headache 10/10, associated with nausea vomiting despite receiving Tylenol and Zofran. Given a dose of Toradol 60 mg, Reglan and Benadryl for symptomatic management. All this could have been related to underlying stress. Will follow-up with the EEG results and then decide about further management: Likely increasing the dose of Lamictal to 100 mg twice a day and discontinue Keppra upon discharge we will do a regular repeat EEG as an outpatient in my office after being on Lamictal 100 mg twice a day for 2 weeks.
--- NOTE | 2024-06-14 12:37 | PC.NURSE ---
Attempted to obtain 12pm vitals 3 times, patient refused all 3 times. Education given.
--- NOTE | 2024-06-14 13:14 | PD.RESPRO ---
Documentation for date of: 06/14/24 Subjective Subjective Interval history: 06/14/2024: No acute overnight events to report. Patient seen and examined in hospital reporting some nausea/diarrhea and 1 episode of vomiting. Patient is scheduled for MRI brain with and without contrast as requested by neurology. Patient completed 24-hour EEG, pending neurology read. At this time, patient is not on any Keppra; moreover, will await for nephrology's recommendations. Patient will also complete modified barium swallow for dysphagia. Will continue to monitor patient for any acute changes. Exam Vital Signs Temp Pulse Resp BP Pulse Ox O2 Del Method O2 Flow Rate 97.6 F 100 17 96/62 100 Room Air 4 06/14/24 12:00 06/14/24 12:00 06/14/24 12:00 06/14/24 12:00 06/14/24 12:00 06/14/24 12:00 06/14/24 12:00 Narrative Exam Physical Exam: GENERAL: Somnolent, appears stated age HEENT: NC/AT. Moist mucosa. PERRLA/EOMI. CARDIO: Heart RRR, no obvious murmurs, no JVD. PULM: No coughing or visible SOB. Lungs CTA B/L. GI: Abdomen soft, NT/ND, +BS. SKIN/MSK/EXT: No wounds/discoloration/rashes/edema/amputations noted. +Pedal pulses present B/L. NEURO: Oriented x3, Moves extremities x4, no focal neurologic deficits noted Objective Labs 06/14/24 05:43 06/14/24 05:43 Labs: Laboratory Results - last 24 hr 06/14/24 05:43 WBC 5.8 RBC 4.31 Hgb 12.4 Hct 36.6 MCV 85 MCH 28.8 MCHC 33.9 RDW Std Deviation 41.5 Plt Count 229 Neut % (Auto) 57 Lymph % (Auto) 35 [place] % (Auto) 7 Eos % (Auto) 1 Baso % (Auto) 1 Neut # (Auto) 3.3 Lymph # (Auto) 2.0 [place] # (Auto) 0.4 Eos # (Auto) 0.1 Baso # (Auto) 0.0 Immature Gran # (Auto) 0.01 H Absolute Nucleated RBC 0.00 Immature Gran % 0 Nucleated RBC % 0 Sodium 142 Potassium 4.3 Chloride 107 Carbon Dioxide 23.5 Anion Gap 12 BUN 5 L Creatinine 0.8 Estim Creat Clear Calc 73.4 eGFR > 60 BUN/Creatinine Ratio 6 L Glucose 70 L Calculated Osmolality 278 Calcium 8.7 Corrected Calcium 8.8 Magnesium 1.7 Total Bilirubin 0.7 AST 19 ALT 13 Alkaline Phosphatase 73 Total Protein 6.2 Albumin 3.9 Globulin 2.3 Albumin/Globulin Ratio 1.7 ABG Interpretation ABG results: 06/11/24 20:20 ABG pH 7.44 ABG pCO2 36 ABG pO2 92 ABG HCO3 24 ABG O2 Saturation 98 ABG Base Excess 1 Quality Measures Quality Measures VTE prophylaxis Assessment & Plan Assessment Current Active Medications: Generic Name Dose Route Start Last Admin Trade Name Freq PRN Reason Stop Dose Admin Acetaminophen 650 mg 06/12/24 07:45 06/14/24 07:32 Acetaminophen 325 Mg Tablet PO 07/11/24 20:13 650 mg Q6H PRN Administration Pain 1-3 Or Fever > 99 Heparin Sodium (Porcine) 5,000 unit 06/11/24 22:00 06/14/24 06:18 Heparin Sod Inj 5000 Unit/Ml Vial SC 06/25/24 21:59 5,000 unit Q8HR MATTY Administration Ceftriaxone Sodium/Dextrose 1 gm in 50 mls @ 100 mls/hr 06/12/24 09:00 06/14/24 10:42 Rocephin/D5w 1gm Iv Premix IV 06/19/24 08:59 100 mls/hr QDAY MATTY Administration Doxycycline Hyclate 100 mg/ 100 mls @ 100 mls/hr 06/12/24 09:00 06/14/24 10:43 Sodium Chloride IV 06/19/24 08:59 100 mls/hr BID MATTY Administration Dextrose/Lactated Ringer's 1,000 mls @ 100 mls/hr 06/14/24 11:44 D5-Lr IV 06/14/24 21:43 .Q10H ONE Lamotrigine 25 mg 06/12/24 09:00 06/14/24 10:43 Lamotrigine 25 Mg Chew PO 07/12/24 08:59 25 mg BID MATTY Administration Levetiracetam 750 mg 06/13/24 21:00 Levetiracetam Inj 100 Mg/Ml Vial 5ml IVP 07/13/24 20:59 Q12HR MATTY Lorazepam 2 mg 06/12/24 08:14 06/13/24 10:35 Lorazepam 2 Mg/Ml Vial IVP 06/17/24 08:13 2 mg Q5M PRN Administration sezuire Ondansetron HCl 4 mg 06/11/24 20:14 06/13/24 20:34 Ondansetron Inj 2 Mg/Ml Inj 2 Ml IV 07/11/24 20:13 4 mg Q6H PRN Administration NAUSEA OR VOMITING Protocol Pantoprazole Sodium 40 mg 06/14/24 11:45 Pantoprazole Inj 40 Mg Vial IVP 07/14/24 11:44 QDAY MATTY Sennosides 2 tab 06/11/24 20:14 Senna Tablet PO 07/11/24 20:13 BID PRN CONSTIPATION Protocol Plan 34-year-old female, past medical history of seizure disorders, brought to the emergency room via EMS after multiple episodes of witnessed tonic-clonic seizures. #Seizure disorder Per family, patient has been having seizures since the age of 6 months and has been on both Keppra and lamotrigine Per mother, patient does not tolerate Keppra very well and apparently has headaches secondary to the medication. Presented with multiple episodes of generalized tonic-clonic seizures, received midazolam 2.5 mg en route to EMS History of missing home medications including lamotrigine secondary to gap in insurance coverage. Received loading dose of Keppra in the ER. Initial CT showed acute and chronic sinusitis but no other acute process noted Initial EEG showed paroxysmal multifocal slowing and questionable spike and wave discharges in both anterior temporal, central and temporal areas consistent with seizure disorder Plan: MRI brain with and without contrast ordered Will hold Keppra at this time, will restart when neurology provides recommendations Continue patient's lamotrigine 25 mg p.o. twice daily EEG ordered, repeat Neurology consult to Dr. Burleson, appreciate recommendations Seizure precautions in place IV Ativan 2 mg as needed for seizures #Dysphagia #Vomiting #Diarrhea Per family, patient's been having dysphagia for the past +1 week Patient states that she has dysphagia to both solids and liquids and states that she feels like food is getting stuck in her esophagus Patient denies any regurgitation, halitosis, difficulty initiating swallowing or GERD like symptoms Speech eval recommended dysphagia 3 diet Plan: Modified barium swallow study ordered Restarted dysphagia 3 diet Will consult GI if the patient dysphagia persists for further workup New GI symptoms likely secondary to seizure semiology, will continue to monitor Added Imodium for diarrhea, monitor for persistence PRN Zofran #Aspiration Pneumonia #Acute sinusitis Per father patient had no history of fever leading up to the episode of seizures, no reported cough, or headache. Chest x-ray suspicious for right upper lobe pneumonia Patient did have 1 episode of vomiting while she was being transferred from the CT scan. Possible aspiration pneumonia. Blood cultures no growth within 24 hours Plan: IV ceftriaxone 1 g daily day 3 IV doxycyline 100mg BID day [address] #Lactic acidosis?now resolved #High anion gap metabolic acidosis?now resolved Likely 14, CO2 less than 10, likely related to seizures, reported improvement in lactic acid after IV fluid boluses, received 3 L IV fluid boluses patient has no history of diabetes mellitus, A1c 4.8, initial glucose 204, repeat lactic acid 1.7. BHB 1.0, Pro-Connor 0.04, ABG was ordered which showed resolution of acidosis. IV fluid resuscitation completed, diet started Plan: Replete electrolytes as needed Follow-up with morning labs Hospital Management: Disposition: neuro recs, admit to tele, DVT prophylaxis: Heparin subcut GI prophylaxis: none Diet: Dysphagia 3 diet Lines: PIV CODE STATUS: Full Patient seen and examined with attending Dr. Ed Millan, PGY-1
[2024-06-14] MEDS: ONDANSETRON INJ 2 MG/ML INJ 2 ML 4 MG IV (13:21)
[2024-06-14] MEDS: DEXTROSE 5%-LACTATED RINGERS 1,000 ML 100 ML IV (14:27)
[2024-06-14] MEDS: PANTOPRAZOLE INJ 40 MG VIAL IVP (14:28)
--- NOTE | 2024-06-14 14:39 | PC.SS ---
Rounding: Pending MRI
--- NOTE | 2024-06-14 14:49 | XR_ITS ---
Examination: MRI of brain without intravenous contrast. MRI brain with intravenous contrast. Date and time of exam:June 14, 2024 1508 hours Comparison 10/29/2020 INDICATIONS: History multiple seizures including seizure June 11, 2024 Technique: Multiple axial and sagittal images of the brain to been obtained. Siemens high-resolution 1.52 Beti short bore scanner utilized. Sagittal sections, T1 weighted images, TR 500, TE 14, are performed. Axial sections proton-density and T2-weighted images have been obtained. Inversion recovery axial images, TR 9260, TE 111, TR 2500. Diffusion weighted images, axial sections, TR 4800, TE 128, B value 1000. Axial sections, ADC map, TR 4800, TE 128. Axial and coronal images were also obtained post 9 cc gadolinium administered intravenously. Findings:: Enlargement of the sella turcica is not present. The optic chiasm and infundibular stalk are not remarkable. There is no localized enlargement of the medulla or aditi. Fourth ventricle and cerebellar tonsils appear normal in position. No subacute area of hemorrhage density is seen. Fourth ventricle is midline. Mass in the cerebellopontine angle region is not evident. 7th and 8th nerve complexes exhibit symmetry Globes are symmetrical Orbital musculature including medial lateral rectus muscles do not exhibit abnormality Increased white matter signal is not seen Effacement of the cortical sulcal markings is not identified. Mass effect upon the ventricular system is not identified. Diffusion-weighted images demonstrate no focus of restricted diffusion Contrast images demonstrate no abnormal enhancement Impression: Negative for acute hemorrhage mass effect or midline shift No acute infarct No MR findings diagnostic for demyelinating disease No abnormal enhancing cerebellar or cerebral lesions
[2024-06-14] MEDS: LOPERAMIDE 2 MG CAPSULE 4 MG PO (16:23)
[2024-06-14] MEDS: DiphenhydrAMINE INJ 50 MG/ML VIAL 25 MG IVP (18:30)
[2024-06-14] MEDS: KETOROLAC INJ 30 MG/ML VIAL 60 MG IVP (18:30)
[2024-06-14] MEDS: METOCLOPRAMIDE INJ 5 MG/ML VIAL 2 ML 10 MG IVP (18:30)
[2024-06-15] VITALS: BP 91/62; PULSE 60; RESP 16; TEMP 36.8; O2SAT 98
[2024-06-15 04:00] VITALS: BP 115/75; PULSE 59; RESP 18; TEMP 36.9; O2SAT 98
[2024-06-15 05:42] VITALS: BMI 19.8
[2024-06-15 06:24] LABS: Basophils % (Auto) 1 % (0-2.5); Eosinophils # (Auto) 0.1 Thou/mm3 (0.0-0.5); Eosinophils % (Auto) 2 % (0-10); Hematocrit 34.9 % (36.0-46.0); Immature Granulocytes % (Auto) 0 % (0-0); Immature Granulocytes Auto 0.01 Thou/mm3 (0.00-0.00); Lymphocytes # (Auto) 1.9 Thou/mm3 (1.0-4.8); Lymphocytes % (Auto) 39 % (10-50); Mean Corpuscular HGB Conc 34.4 g/dl (31.0-37.0); Mean Corpuscular Hemoglobin 29.2 pg (25.0-35.0); Mean Corpuscular Volume 85 fL (80-100); Monocytes # (Auto) 0.4 Thou/mm3 (0.0-0.8); Monocytes % (Auto) 7 % (0-12); Neutrophils # (Auto) 2.4 Thou/mm3 (1.8-7.7); Neutrophils % (Auto) 51 % (37-80); Nucleated Red Blood Cell % 0 /100 WBC (0); Platelet Count 226 Thou/mm3 (140-440); RDW Standard Deviation 41.3 fL (36.4-46.3); Red Blood Count 4.11 Miln/mm3 (4.00-5.20); White Blood Count 4.8 Thou/mm3 (3.6-11.0)
[2024-06-15 07:27] LABS: Alanine Aminotransferase 11 U/L (10-49); Albumin, Serum 3.7 gm/dL (3.5-5.0); Albumin/Globulin Ratio 1.8 (1.2-2.2); Alkaline Phosphatase 64 U/L (46-116); Anion Gap 9 (7-16); Aspartate Amino Transferase 17 U/L (0-34); BUN/Creatinine Ratio 6 Ratio (12-20); Bilirubin,Total 0.6 mg/dL (0.3-1.2); Blood Urea Nitrogen < 5 mg/dL (9-23); Calcium 8.5 mg/dL (8.3-10.6); Calcium (Corrected) 8.7 mg/dL (8.5-10.1); Carbon Dioxide 26.2 mMol/L (20.0-31.0); Chloride 108 mMol/L (98-107); Creatinine (Component) 0.8 mg/dL (0.6-1.3); Estimated Creatinine Clearance 73.4 mL/min (>60); Globulin 2.1 gm/dL (2.3-3.5); Glucose 86 mg/dL (74-106); Osmolality,Calculated 281 (275-295); Potassium 3.6 mMol/L (3.4-5.1); Sodium 143 mMol/L (136-145); Total Protein 5.8 gm/dL (5.7-8.2); eGFR > 60 See Note
[2024-06-15] MEDS: ONDANSETRON INJ 2 MG/ML INJ 2 ML 4 MG IV (07:31)
[2024-06-15 08:00] VITALS: BP 129/80; PULSE 72; PULSE 86; RESP 16; TEMP 36.5; O2SAT 100
[2024-06-15] MEDS: cefTRIAXone/D5w 1gm IV premix 1 GM/50 ML BAG IV (08:23)
[2024-06-15] MEDS: PANTOPRAZOLE INJ 40 MG VIAL IVP (08:24)
[2024-06-15] MEDS: SCOPOLAMINE 1 MG TDSY TOP (08:52)
[2024-06-15] MEDS: DOXYCYCLINE INJ 100 MG in SODIUM CHLORIDE 0.9% (POP) 100 ML IV (08:54)
--- NOTE | 2024-06-15 08:58 | PC.SS ---
Follow up note: Patient to d/c home today. Cleared by Neuro. No further d/c needs.
[2024-06-15] MEDS: Magnesium Sulfate 2 GM Ivpb 2 GM/50 ML BAG IV (10:27)
[2024-06-15] MEDS: POTASSIUM CHLORIDE 20 mEq TABCR 40 MEQ PO (10:39)
[2024-06-15] MEDS: lamoTRIgine 25 MG CHEW 100 MG PO (10:39)
[2024-06-15] MEDS: LACTOBACILLUS RHAMNOSUS 1 CAP PO (10:40)
[2024-06-15 12:00] VITALS: BP 117/83; PULSE 76; PULSE 85; RESP 22; TEMP 36.5; O2SAT 100
[2024-06-15 13:00] VITALS: BP 117/83; PULSE 85; RESP 22; TEMP 36.5; O2SAT 100
--- NOTE | 2024-06-15 13:21 | ESDS_ITS ---
<Statement entered by Warner Valdes MD - 06/15/24 18:36> Patient was examined with the team including attending physician. Note reviewed, I agree with the discharge plan as documented. - Warner Valdes MD PGY2 Disclaimer: The document may contain phonetic/typographic errors due to voice recognition software. These errors are purely due to imperfections in the software program and should not be misconstrued in any way to compromise the substance of the patient's medical care during this visit. Planned Discharge Date 06/15/24 DS: Providers Provider Date of admission: 06/11/24 20:27 Primary care physician: Physician No Primary/Family Admitting Provider: Klaus Arevalo MD Attending Provider on Admission: Mann Ward MD Consults: 06/11/24 20:17 Consult to Neurology / Tele-Neurology Routine Comment: Consulting Provider: Jonathan Burleson 06/12/24 09:45 Referral Speech Therapy Routine Comment: Attending Provider on DC: John Millan MD Discharging Provider: John Millan MD DS: Diagnosis Problem List Completed Was Problem List Reviewed/Reconciled?: Yes Hospital Course Hospital Course Hospital course: 34-year-old female with past medical history of seizure disorder presented to the ED on 06/11 with an episode of multiple witnessed seizures. In the ED, patient's vitals included blood pressure 96/70, temperature 100 ?F, sepsis alert was initiated, patient was given 1000 mg of Keppra loading dose send will monitor, patient's lactate is 14, bicarb less than 10 and urine test negative. CT of the head showed no acute pathology and the patient was admitted for neurology consultation for seizures. Rapid response was called on 06/12 as the patient was having breakthrough seizures which subsided after 2 mg of Ativan were given. Neurology recommended obtaining EEG and brain MRI with and without contrast for further assessment. Patient's Keppra was held and eventually discontinued with an increase in the patient's Lamictal from 25 mg p.o. twice daily to 100 mg p.o. twice daily. Patient did not have any other breakthrough seizures during hospitalization and 24-hour EEG monitoring. During hospitalization, patient did develop some gastrointestinal symptoms such as nausea/vomiting and several episodes of diarrhea. Symptomatic management was initiated and the patient did improve with scopolamine patch. Patient will be discharged with the following strict instructions. Please take lamotrigine 100 mg tablet by mouth twice a day Please use scopolamine patch 1 patch ever 3 days as needed for nausea/vomiting Please take protonix 20 mg by mouth daily along with Culturelle (probiotics) for gastrointestinal symptoms; recommend 4-week trial only. Follow-up with your PCP within 1 week Please follow-up with Dr. Burleson (neurology) within 2 weeks - you need to complete an additional EEG test If your symptoms worsen or if you develop new headaches, dizziness, seizures, hallucinations or changes in vision/hearing - please come back to the ED immediately Hospital Diagnosis: #Seizure disorder #Dysphagia #Vomiting, improving #Diarrhea, improving #Aspiration Pneumonia #Lactic acidosis?now resolved #High anion gap metabolic acidosis?now resolved John Millan, PGY-1 Status at Discharge Overall status at discharge: patient is progressing back to baseline Time Spent with Patient Time attestation: Total time spent providing and/or coordinating discharge services: 45 minutes Time spent: Greater than 30 minutes Exam Vital Signs Temp Pulse Resp BP Pulse Ox O2 Del Method O2 Flow Rate 97.7 F 76 16 129/80 100 Room Air 4 06/15/24 08:00 06/15/24 12:00 06/15/24 08:00 06/15/24 08:00 06/15/24 08:00 06/15/24 08:00 06/14/24 12:00 Narrative Exam Physical Exam: GENERAL: Awake, appears stated age, answering questions appropriately HEENT: NC/AT. Moist mucosa. PERRLA/EOMI. CARDIO: Heart RRR, no obvious murmurs, no JVD. PULM: No coughing or visible SOB. Lungs CTA B/L. GI: Abdomen soft, NT/ND, +BS. SKIN/MSK/EXT: No wounds/discoloration/rashes/edema/amputations noted. +Pedal pulses present B/L. NEURO: Oriented x3, Moves extremities x4, no focal neurologic deficits noted Discharge Plan Plan Patient Disposition: HOME (Self Care) Patient condition on transfer: Stable Care Plan Goals: Please take lamotrigine 100 mg tablet by mouth twice a day Please use scopolamine patch 1 patch ever 3 days as needed for nausea/vomiting Please take protonix 20 mg by mouth daily along with Culturelle (probiotics) for gastrointestinal symptoms; recommend 4-week trial only. Follow-up with your PCP within 1 week Please follow-up with Dr. Burleson (neurology) within 2 weeks - you need to complete an additional EEG test If your symptoms worsen or if you develop new headaches, dizziness, seizures, hallucinations or changes in vision/hearing - please come back to the ED immediately Prescriptions/Referrals Prescriptions/Med Rec: New scopolamine base 1 mg over 3 days Patch 3 Day 1 mg top Q3D Qty: 24 0RF Culturelle 10 billion cell Capsule 1 cap PO BID 30 Days Qty: 60 0RF lamotrigine 100 mg tablet 100 mg PO BID 30 Days Qty: 60 0RF pantoprazole [Protonix] 20 mg tablet,delayed release (DR/EC) 20 mg PO QDAY 30 Days Qty: 30 0RF Discontinued lamotrigine 25 mg tablet 25 mg PO BID Patient Comments: TAKE ONE TABLET BY MOUTH EVERY DAY FOR FOURTEEN DAYS, THEN TAKE ONE TABLET BY MOUTH TWICE DAILY levetiracetam 500 mg tablet 500 mg PO BID Patient Comments: TAKE ONE TABLET BY MOUTH TWICE DAILY Referrals: No Primary/Family,Physician [Primary Care Provider] - Jonathan Burleson MD [Physician] - Patient/Caregiver Discharge Instructions Education Materials: Self-Care for Epilepsy, Living Well with Epilepsy, ED Seizure, Recurrent (Adult) Print Language: Romanian Stand Alone Forms: [facility] Award Info., Patient Portal Info Letter Discharge Order Discharge Orders: Discharge (Routine); Ordered 06/15/24 Ordered By: John Millan Quality Discharge Quality Measures VTE prophylaxis
--- NOTE | 2024-06-15 13:56 | ESPR_ITS ---
Documentation for date of: 06/15/24 Subjective Subjective Interval history: Patient was seen and examined by the bedside. No acute overnight events. Patient reports improvement of the headache. She receives scopolamine patch for the nausea. Pending EEG read. Exam Vital Signs Temp Pulse Resp BP Pulse Ox O2 Del Method O2 Flow Rate 97.7 F 76 16 129/80 100 Room Air 4 06/15/24 08:00 06/15/24 12:00 06/15/24 08:00 06/15/24 08:00 06/15/24 08:00 06/15/24 08:00 06/14/24 12:00 Narrative Exam Gen: Well-developed and well-nourished. HEENT: NCAT, PERRLA, EOMI, MMM, anicteric conjunctivae. CVS: normal S1 and S2. RRR. No M/R/G. Resp: CTA B/L. No rhonchi, rales, crackles or wheezing. Abd: soft, non-tender, non-distended. BS+ in all 4 quadrants. MSK: Good ROM in BUE & BLE. No edema or rash. Neuro: CN II-XII grossly intact. Strength 5/5 in BUE & BLE. Mild numbness on the lateral side of the left ankle and left foot. Mild plantar flexion weakness. Alert and oriented x3. Psych: appropriate mood and affect. Objective Labs 06/15/24 05:29 06/15/24 05:29 Labs: Laboratory Results - last 24 hr 06/15/24 05:29 WBC 4.8 RBC 4.11 Hgb 12.0 Hct 34.9 L MCV 85 MCH 29.2 MCHC 34.4 RDW Std Deviation 41.3 Plt Count 226 Neut % (Auto) 51 Lymph % (Auto) 39 [place] % (Auto) 7 Eos % (Auto) 2 Baso % (Auto) 1 Neut # (Auto) 2.4 Lymph # (Auto) 1.9 [place] # (Auto) 0.4 Eos # (Auto) 0.1 Baso # (Auto) 0.0 Immature Gran # (Auto) 0.01 H Absolute Nucleated RBC 0.00 Immature Gran % 0 Nucleated RBC % 0 Sodium 143 Potassium 3.6 D Chloride 108 H Carbon Dioxide 26.2 Anion Gap 9 BUN < 5 L Creatinine 0.8 Estim Creat Clear Calc 73.4 eGFR > 60 BUN/Creatinine Ratio 6 L Glucose 86 Calculated Osmolality 281 Calcium 8.5 Corrected Calcium 8.7 Total Bilirubin 0.6 AST 17 ALT 11 Alkaline Phosphatase 64 Total Protein 5.8 Albumin 3.7 Globulin 2.1 L Albumin/Globulin Ratio 1.8 ABG Interpretation ABG results: 06/11/24 20:20 ABG pH 7.44 ABG pCO2 36 ABG pO2 92 ABG HCO3 24 ABG O2 Saturation 98 ABG Base Excess 1 Quality Measures Quality Measures VTE prophylaxis Assessment & Plan Assessment Current Active Medications: Generic Name Dose Route Start Last Admin Trade Name Freq PRN Reason Stop Dose Admin Acetaminophen 650 mg 06/12/24 07:45 06/14/24 07:32 Acetaminophen 325 Mg Tablet PO 07/11/24 20:13 650 mg Q6H PRN Administration Pain 1-3 Or Fever > 99 Heparin Sodium (Porcine) 5,000 unit 06/11/24 22:00 06/15/24 04:59 Heparin Sod Inj 5000 Unit/Ml Vial SC 06/25/24 21:59 Not Given Q8HR MATTY Ceftriaxone Sodium/Dextrose 1 gm in 50 mls @ 100 mls/hr 06/12/24 09:00 06/15/24 08:23 Rocephin/D5w 1gm Iv Premix IV 06/19/24 08:59 100 mls/hr QDAY MATTY Administration Doxycycline Hyclate 100 mg/ 100 mls @ 100 mls/hr 06/12/24 09:00 06/15/24 08:54 Sodium Chloride IV 06/19/24 08:59 100 mls/hr BID MATTY Administration Lactobacillus Rhamnosus 1 cap 06/15/24 09:00 06/15/24 10:40 Lactobacillus Rhamnosus 1 Cap PO 07/15/24 08:59 1 cap BID MATTY Administration Lamotrigine 100 mg 06/15/24 09:00 06/15/24 10:39 Lamotrigine 25 Mg Chew PO 07/15/24 08:59 100 mg BID MATTY Administration Levetiracetam 750 mg 06/13/24 21:00 06/14/24 19:18 Levetiracetam Inj 100 Mg/Ml Vial 5ml IVP 07/13/24 20:59 Not Given Q12HR MATTY Lorazepam 2 mg 06/12/24 08:14 06/13/24 10:35 Lorazepam 2 Mg/Ml Vial IVP 06/17/24 08:13 2 mg Q5M PRN Administration sezuire Ondansetron HCl 4 mg 06/11/24 20:14 06/15/24 07:31 Ondansetron Inj 2 Mg/Ml Inj 2 Ml IV 07/11/24 20:13 4 mg Q6H PRN Administration NAUSEA OR VOMITING Protocol Pantoprazole Sodium 40 mg 06/14/24 11:45 06/15/24 08:24 Pantoprazole Inj 40 Mg Vial IVP 07/14/24 11:44 40 mg QDAY MATTY Administration Scopolamine 1 mg 06/15/24 09:00 06/15/24 08:52 Scopolamine 1 Mg Tdsy TOP 07/15/24 08:59 1 mg Q3D MATTY Administration Plan The patient is a 34-year-old female, past medical history of seizure disorders, brought to the emergency room via EMS after multiple episodes of witnessed tonic-clonic seizures. #Seizure disorder Patient has a history of seizures that were previously controlled. She was not compliant with medication in the last few months and has been experiencing stress at home. She also has been smoking marijuana daily and drinks alcohol (vodka shots) few times a week. 06/13/24 patient had prolonged seizure (more than 2 min) with flexion of lower extremities and rotating her body. There's a concern for possible PNES in the setting of stress. Plan: - continous EEG monitoring read pending - hold Keppra for now - seizure precautions - aspiration precautions - lamotrigine 100 mg BID - follow-up with Dr. Burleson in 2 weeks #Headache Patient reports continuous headaches, which usually appear after seizures. Could be in the setting of postictal phenomena, stress, medication overuse. 06/14/24: was given ketarol 60 mg+benadryl+reglan for headache. Was educated on medication overuse headache. Plan: - patient was educated on the nature of possible causes of headache - nsaids as needed, avoid overuse #Dysphagia #Aspiration Pneumonia #Acute sinusitis #Lactic acidosis?now resolved #High anion gap metabolic acidosis?now resolved - management per primary team Plan of care discussed with attending Dr. Burleson. Nuha Serrano MD, PGY 1. Attending Provider Attestation/Addendum Independently reviewed the patient's chart and agreed with resident's findings, assessment and plan of care. The patient is stable for discharge on Lamictal 100 mg twice a day. Follow-up in one of the clinics upon referral. She is advised not to drive and advised regarding the importance of compliance.
[2024-06-20 07:03] LABS: Prolactin* 27.5 ng/mL
== END 2024-06-15 13:22 | disposition home or self-care (01) | DRG 53 ==
LOC: SERX 16:49 → SERHOLD 21:02 → S2NX 06-12 03:06
PROVIDERS: Nurse Practitioner Family; Student in an Organized Health Care Education/Training Program; Admitting Provider Student in an Organized Health Care Education/Training Program; Emergency Provider Emergency Medicine; Visit Provider Internal Medicine
DX: G40.919 Epilepsy, unspecified, intractable, without status epilepticus (principal); E87.6 Hypokalemia; E87.20 Acidosis, unspecified; F12.90 Cannabis use, unspecified, uncomplicated; J01.90 Acute sinusitis, unspecified; J69.0 Pneumonitis due to inhalation of food and vomit; J32.9 Chronic sinusitis, unspecified; R32 Unspecified urinary incontinence; R13.10 Dysphagia, unspecified; R19.7 Diarrhea, unspecified; Z63.9 Problem related to primary support group, unspecified; Z79.899 Other long term (current) drug therapy; Z91.148 Patient's other noncompliance with medication regimen for other reason; T42.6X6A Underdosing of other antiepileptic and sedative-hypnotic drugs, initial encounter; Z91.128 Patient's intentional underdosing of medication regimen for other reason
CPT/HCPCS: 36415; 36600; 70450; 70553; 71045; 80053; 80061; 80069; 80307; 81001; 82010; 82803; 83036; 83605; 83615; 83690; 83735; 83880; 84100; 84145; 84146; 84443; 84484; 84702; 85025; 85610; 85730; 87040; 87400; 87811; 92526; 92610; 93005; 95813; 95816; 96365; 96368; 96372; 96375; 99285; A9579; J0131; J0696; J1200; J1644; J1885; J1953; J2060; J2405; J2470; J2765; J3475; J3480; J3490; J7120; J7121; J7999; A9270

== ENCOUNTER 2024-12-28 09:50 | Emergency (ER) | payer MEDICAID, SELFPAY ==
[2024-12-28 10:00] VITALS: BP 98/64; PULSE 77; RESP 16; TEMP 36.7; O2SAT 95; BMI 20.1
--- NOTE | 2024-12-28 10:05 | XR_ITS ---
EXAMINATION: Lumbar spine 2 views TECHNIQUE: AP lateral lumbar spine 2 views Date and time: December 28, 2024, 10:42 a.m. INDICATIONS: Patient fell twice in the last several days secondary to seizures FINDINGS: Adequate alignment lumbar vertebral bodies on the lateral view No lumbar fracture No spondylolisthesis Orthopedic sideplate left acetabulum IMPRESSION: No acute lumbar fracture
--- NOTE | 2024-12-28 10:05 | XR_ITS ---
EXAMINATION: Thoracic spine 2 views TECHNIQUE: Lateral and coned lateral upper dorsal spine only Date and time: December 28, 2024, 1026 hours INDICATIONS: Back pain today FINDINGS: No AP view thoracic spine Satisfactory alignment thoracic vertebral bodies on the lateral view with no fracture noted IMPRESSION: Incomplete study
[2024-12-28] MEDS: HYDROcodone/APAP 5/325 TABLET 1 TAB PO (10:20)
[2024-12-28 11:27] LABS: HCG Qualitative,Urine Negative
--- NOTE | 2024-12-28 12:10 | EDNOTE_ITS ---
ED Back Injury Pain RME/HPI General Chief Complaint: Back Pain/Injury Stated Complaint: BACK PAIN Time Seen by Provider: 12/28/24 10:05 Arrival date/time: 12/28/24 09:50 34-year-old female presents to the department for complaints of lower back pain patient reports that she has a history of seizures patient reports that she had a seizure and fell injuring her lower back. Patient reports no head or neck injury Limitations: no limitations Related Data Previous Rx's ?Medication ?Instructions ?Recorded scopolamine base 1 mg over 3 days 1 mg top Q3D #24 ea 06/15/24 transdermal patch cyclobenzaprine 10 mg tablet 10 mg PO TID PRN muscle s pasm 10 12/28/24 days #30 tab-caps hydrocodone 5 mg-acetaminophen 325 1 tab PO BID PRN pa in #6 tabs 12/28/24 mg tablet ibuprofen 600 mg tablet 600 mg PO Q6H #30 tabs 12/28 Allergies Allergy/AdvReac Type Severity Reaction Status Date / Time No Known Allergies Allergy Verified 12/28/24 09:53 Review of Systems Review of Systems Systems Reviewed: All systems reviewed, normal except as documented Constitutional Constitutional: Reports system reviewed and no additional complaints, except as documented, Denies fever(s) and Denies headache(s) Eyes Eyes: Reports system reviewed and no additional complaints, except as documented and Denies blurry vision ENT Ears, Nose, Mouth, and Throat: Reports system reviewed and no additional complaints, except as documented, Denies headache(s), Denies nasal congestion and Denies nasal discharge Cardiovascular Cardiovascular: Reports system reviewed and no additional complaints, except as documented, Denies chest pain and Denies dyspnea Respiratory Respiratory: Reports system reviewed and no additional complaints, except as documented, Denies chest congestion, Denies cough and Denies dyspnea Gastrointestinal Gastrointestinal: Reports system reviewed and no additional complaints, except as documented and Denies abdominal pain Musculoskeletal Musculoskeletal: Reports system reviewed and no additional complaints, except as documented, Reports back pain, Denies numbness, Denies stiffness and Denies tingling Integumentary/Breasts Skin/Breast: Reports system reviewed and no additional complaints, except as documented and Denies rash Neurologic Neurologic: Reports system reviewed and no additional complaints, except as documented, Reports as per HPI, Denies headache(s), Denies numbness and Denies tingling Past Medical History Past Medical History NEUROLOGIC: Positive Neurological Disorders and Seizures CARDIAC: Negative Congestive Heart Failure RESPIRATORY: Negative Chronic Obstructive Pulmonary Disease (COPD) GENITOURINARY: Negative Renal Disease ENDOCRINE: Negative Diabetes Mellitus Type 1 or Diabetes Mellitus Type 2 Family History FAMILY HISTORY: Positive Family Neurologic Problems (father has seizures) Social History SMOKING STATUS: Never smoker SUBSTANCE USE: marijuana ED Exam General Limitations: Present no limitations General appearance: Present alert and in no apparent distress Head Head exam: Present atraumatic, normocephalic and normal inspection Eye Eye exam: Present normal appearance, PERRL and EOMI; Absent conjunctival inj ection ENT ENT exam: Present normal exam, normal oropharynx and mucous membranes moist Neck Neck exam: Present normal inspection, full ROM and trachea midline Chest Chest inspection: Present normal inspection and symmetric chest wall rise Respiratory Respiratory exam: Present normal lung sounds bilaterally; Absent respiratory distress Cardiovascular Cardiovascular exam: Present regular rate, normal rhythm and normal heart sounds Abdominal Exam Abdominal exam: Present soft and normal bowel sounds; Absent distention, tenderness, guarding, rebound or rigidity Extremities Exam Extremities exam: Present normal inspection and full ROM; Absent tenderness Back Exam Back exam: Present normal inspection, full ROM, tenderness, muscle spasm and paraspinal tenderness; Absent CVA tenderness (R) or CVA tenderness (L) Neurological Exam Neurological exam: Present alert, oriented X3 and CN II-XII intact Psychiatric Psychiatric exam: Present normal affect and normal mood Skin Skin exam: Present warm, dry, intact and normal color Course Quality Measures none Orders Category Date Time Status XR lumbar spine 2-3V Stat Exams 12/28/24 10:05 Completed XR thoracic spine 3V Stat Exams 12/28/24 10:05 Completed HCG Qualitative,Urine Stat Lab 12/28/24 11:00 Completed HYDROcodone*/APAP 5/325 [[place] 5/325] Med 12/28/24 10:16 Discontinued 1 tab PO X1 ONE Ibuprofen Tab [Motrin Tab] Med 12/28/24 10:05 Discontinued 800 mg PO X1 ONE Vital Signs Vital signs: Vital Signs Temperature 98.1 F 12/28/24 10:00 Pulse Rate 77 12/28/24 10:00 Respiratory Rate 16 12/28/24 10:00 Blood Pressure 98/64 12/28/24 10:00 Pulse Oximetry (%) 95 12/28/24 10:00 Oxygen Delivery Method Room Air 12/28/24 10:00 o2 sat 95% r.a wnl Back Pain / Injury MDM Narrative MDM Narrative:: 34-year-old female presents to the department for complaints of lower back pain patient reports that she has a history of seizures patient reports that she had a seizure and fell injuring her lower back. Patient reports no head or neck injury on exam patient has mild tenderness of lower back patient is no bruising or swelling Imaging obtained no acute emergent findings noted hCG is negative Patient given pain medication Patient discharged home in no distress to follow-up with primary care doctor in the next 24 to 48 hours and for any worsening symptoms to return to the ER immediately Patient data External records reviewed:: [facility] previous records Clinical information provided by:: patient Social determinants that could affect healthcare access:: none Patient has the following chronic illnesses:: see history How is presenting disease/condition affected by chronic disease/condition?: no chronic disease Evaluation data The following diagnostics were reviewed and interpreted by me:: lab results and radiology exam(s) Lab and/or radiology exams considered but not ordered:: By me Interpretation Summary: Given Medications / Prescriptions Medications or Prescriptions considered but not ordered:: Given Medication administrations:: Medication Administration History Discontinued Medications Hydrocodone Bitart/Acetaminophen (Hydrocodone/Apap 5/325 Tablet) 1 tab PO X1 ONE Stop: 12/28/24 10:17 Last Admin: 12/28/24 10:20 Dose: 1 tab Documented By: Ibuprofen (Ibuprofen Tab 400 Mg Tablet) 800 mg PO X1 ONE Stop: 12/28/24 10:06 Last Admin: 12/28/24 10:21 Dose: Not Given Documented By: Non-Admin Reason: Patient Refused Given Consultations Consultation(s) initiated? (list below): No Diagnosis Differential diagnosis back pain/injury: lumbar radiculopathy, sciatica and strain of lumbar region Most likely diagnosis given after review of the tests above:: Back pain Admission Indicated Admission indicated?: not indicated Admission Request Was there a request for admission?: No Disposition Plan Disposition Plan: Discharge Discharge Attestation Discharge Attestation: The patient and all family members were given an opportunity to ask questions and understood the discharge instructions. Discharge instructions specifically effects, indications for sooner follow up or return to the emergency department, and the expected course of current diagnosis. Patient condition: Stable Discharge Plan Plan Patient Disposition: HOME (Self Care) Discharge Disposition comment: Stable Prescriptions/Referrals Prescriptions/Med Rec: New cyclobenzaprine 10 mg tablet 10 mg PO TID PRN (Reason: muscle spasm) 10 Days Qty: 30 0RF hydrocodone-acetaminophen 5-325 mg tablet 1 tab PO BID MDD 10 PRN (Reason: pain) Qty: 6 0RF ibuprofen 600 mg tablet 600 mg PO Q6H Qty: 30 0RF No Action scopolamine base 1 mg over 3 days Patch 3 Day 1 mg top Q3D Qty: 24 0RF Referrals: Orion Aguirre MD [Primary Care Provider, Family Practice] - In 1 week Problem List Clinical Impression: Lumbar back pain Patient/Caregiver Discharge Instructions Education Materials: Back Safety: Lifting Additional Instructions: Please follow up with your primary care doctor in the next 24-48hrs for any worsening symptoms return here immediately Print Language: [place] Citizen Stand Alone Forms: Toya Award Info., Patient Portal Info Letter PA/HOOKER OPERATOR Supervising Physician PA/HOOKER OPERATOR Supervising Physician: Dr. lora
== END 2024-12-28 12:39 | disposition home or self-care (01) ==
PROVIDERS: Nurse Practitioner Primary Care; Emergency Provider Family Medicine; PCP Family Medicine
DX: S39.92XA Unspecified injury of lower back, initial encounter (principal); R56.9 Unspecified convulsions; W19.XXXA Unspecified fall, initial encounter
CPT/HCPCS: 72072; 72100; 81025; 99283; A9270

== ENCOUNTER 2025-02-01 20:50 | Emergency (ER) | payer MEDICAID, SELFPAY ==
[2025-02-01 20:51] VITALS: BMI 20.1
[2025-02-01 21:20] VITALS: BP 126/85; PULSE 76; RESP 18; TEMP 36.9; O2SAT 99
--- NOTE | 2025-02-01 21:31 | EDNOTE_ITS ---
Nausea/Vomit./Diarrhea-RME/HPI General Chief complaint: Nausea/Vomiting/Diarrhea Stated complaint: VOMITING Time Seen by Provider: 02/01/25 21:28 Arrival date/time: 02/01/25 20:50 34F with history of seizures and marijuana use presents to ED with several days of N/V and some non-bloody diarrhea. Patient also wants to be checked for . Patient denies any pain. Limitations: no limitations Related Data Previous Rx's ?Medication ?Instructions ?Recorded scopolamine base 1 mg over 3 days 1 mg top Q3D #24 ea 06/15/24 transdermal patch hydrocodone 5 mg-acetaminophen 325 1 tab PO BID PRN pa in #6 tabs 12/28/24 mg tablet ibuprofen 600 mg tablet 600 mg PO Q6H #30 tabs 12/28 metoclopramide HCl 5 mg tablet 5 mg PO BID PRN nausea and 02/01/25 (Reglan) vomiting #14 tabs Allergies Allergy/AdvReac Type Severity Reaction Status Date / Time No Known Allergies Allergy Verified 02/01/25 20:50 Review of Systems Review of Systems Systems Reviewed: All systems reviewed, normal except as documented Gastrointestinal Gastrointestinal: Reports as per HPI, Reports diarrhea, Reports nausea and Reports vomiting Past Medical History Past Medical History NEUROLOGIC: Positive Neurological Disorders and Seizures CARDIAC: Negative Congestive Heart Failure RESPIRATORY: Negative Chronic Obstructive Pulmonary Disease (COPD) GENITOURINARY: Negative Renal Disease ENDOCRINE: Negative Diabetes Mellitus Type 1 or Diabetes Mellitus Type 2 Family History FAMILY HISTORY: Positive Family Neurologic Problems (father has seizures) Social History SMOKING STATUS: Current every day smoker SUBSTANCE USE: marijuana ED Exam General Limitations: Present no limitations General appearance: Present alert and in no apparent distress Head Head exam: Present atraumatic Neck Neck exam: Present normal inspection, full ROM and trachea midline Chest Chest inspection: Present normal inspection and symmetric chest wall rise Neurological Exam Neurological exam: Present alert and oriented X3 Psychiatric Psychiatric exam: Present normal affect and normal mood Skin Skin exam: Present warm, dry, intact and normal color Course Quality Measures none Orders Category Date Time Status Beta HCG,Quantitative Stat Lab 02/01/25 21:48 Completed CBC Stat Lab 02/01/25 21:48 Completed CMP [Comprehensive Metabolic Panel] Stat Lab 02/01/25 21:48 Completed Urinalysis, C/S if Indicated Stat Lab 02/01/25 22:26 Completed Urine Culture Stat Lab 02/01/25 22:26 Received Metoclopramide Inj [Reglan Inj] Med 02/01/25 21:28 Discontinued 10 mg IM X1 ONE Potassium Chloride [K-Dur] Med 02/01/25 22:25 Discontinued 40 meq PO X1 ONE Vital Signs Vital signs: Vital Signs Temperature 98.5 F 02/01/25 21:20 Pulse Rate 76 02/01/25 21:20 Respiratory Rate 18 02/01/25 21:20 Blood Pressure 126/85 H 02/01/25 21:20 Pulse Oximetry (%) 99 02/01/25 21:20 Oxygen Delivery Method Room Air 02/01/25 21:20 O2 at 99% on RA and WNLs Nausea/Vomiting/Diarrhea MDM Narrative MDM Narrative:: 34F with history of seizures and marijuana use presents to ED with several days of N/V and some non-bloody diarrhea. Patient also wants to be checked for . Patient denies any pain. Physical exam reveals well-appearing female. Patient is afebrile, calm, and alert. Minimal leukocytosis. CMP unremarkable except mildly low K, repleted. Beta <1. UA no gross hydration. PO challenge passed. Patient data External records reviewed:: [facility] previous records Clinical information provided by:: patient Social determinants that could affect healthcare access:: substance use Patient has the following chronic illnesses:: marijuana use and seizures How is presenting disease/condition affected by chronic disease/condition?: exacerbated by Evaluation data The following diagnostics were reviewed and interpreted by me:: lab results Lab and/or radiology exams considered but not ordered:: ordered Interpretation Summary: above Medications / Prescriptions Medications / Prescriptions considered but not ordered:: ordered Medication administrations:: Medication Administration History Discontinued Medications Metoclopramide HCl (Metoclopramide Inj 5 Mg/Ml Vial 2 Ml) 10 mg IM X1 ONE; Protocol Stop: 02/01/25 21:29 Last Admin: 02/01/25 21:39 Dose: 10 mg Documented By: MARIA A Potassium Chloride (Potassium Chloride 20 Meq Tabcr) 40 meq PO X1 ONE Stop: 02/01/25 22:26 Last Admin: 02/01/25 23:05 Dose: 40 meq Documented By: MARIA A above Consultations Consultation(s) initiated? (list below): No Diagnosis Nausea Differential Diagnosis: traveler's diarrhea, food poisoning, gastroenteritis, clostridium difficile infection, drug-induced nausea and vomiting and dehydration Most likely diagnosis given after review of the tests above:: gastroenteritis Admission Indicated Admission indicated?: not indicated Admission Request Was there a request for admission?: No Disposition Plan Disposition Plan: Discharge Discharge Attestation Discharge Attestation: The patient and all family members were given an opportunity to ask questions and understood the discharge instructions. Discharge instructions specifically effects, indications for sooner follow up or return to the emergency department, and the expected course of current diagnosis. Patient condition: Stable Discharge Plan Plan Patient Disposition: HOME (Self Care) Discharge Disposition comment: Stable Prescriptions/Referrals Prescriptions/Med Rec: New metoclopramide HCl [Reglan] 5 mg tablet 5 mg PO BID PRN (Reason: nausea and vomiting) Qty: 14 0RF No Action hydrocodone-acetaminophen 5-325 mg tablet 1 tab PO BID MDD 10 PRN (Reason: pain) Qty: 6 0RF ibuprofen 600 mg tablet 600 mg PO Q6H Qty: 30 0RF scopolamine base 1 mg over 3 days Patch 3 Day 1 mg top Q3D Qty: 24 0RF Referrals: Orion Aguirre MD [Primary Care Provider, Family Practice] - In 1 week Problem List Clinical Impression: Gastroenteritis Patient/Caregiver Discharge Instructions Education Materials: ED Diarrhea, Viral (Adult) Additional Instructions: Please follow-up with PCP within 24-48 hours and return immediately if symptoms worsen. Keep hydrated. Advance diet as tolerated. Print Language: Lao Stand Alone Forms: Patient Portal Info Letter PA/RIGGING WORKER Supervising Physician NÉSTOR/RIGGING WORKER Supervising Physician: Dr. Shehean
[2025-02-01] MEDS: METOCLOPRAMIDE INJ 5 MG/ML VIAL 2 ML 10 MG IM (21:39)
[2025-02-01 22:02] LABS: Basophils # (Auto) 0.0 Thou/mm3 (0.0-0.2); Basophils % (Auto) 0 % (0-2.5); Eosinophils # (Auto) 0.0 Thou/mm3 (0.0-0.5); Eosinophils % (Auto) 0 % (0-10); Hematocrit 40.6 % (36.0-46.0); Hemoglobin 13.7 g/dL (12.0-16.0); Immature Granulocytes Auto 0.03 Thou/mm3 (0.00-0.00); Lymphocytes # (Auto) 2.2 Thou/mm3 (1.0-4.8); Lymphocytes % (Auto) 18 % (10-50); Mean Corpuscular HGB Conc 33.7 g/dl (31.0-37.0); Mean Corpuscular Hemoglobin 28.6 pg (25.0-35.0); Mean Corpuscular Volume 85 fL (80-100); Monocytes # (Auto) 0.7 Thou/mm3 (0.0-0.8); Monocytes % (Auto) 6 % (0-12); Neutrophils # (Auto) 9.6 Thou/mm3 (1.8-7.7); Neutrophils % (Auto) 76 % (37-80); Nucleated Red Blood Cell # 0.00 Thou/mm3 (0.00-0.00); Nucleated Red Blood Cell % 0 /100 WBC (0); Platelet Count 306 Thou/mm3 (140-440); RDW Standard Deviation 43.6 fL (36.4-46.3); Red Blood Count 4.79 Miln/mm3 (4.00-5.20); White Blood Count 12.7 Thou/mm3 (3.6-11.0)
[2025-02-01 22:22] LABS: Alanine Aminotransferase 25 U/L (10-49); Albumin, Serum 4.9 gm/dL (3.5-5.0); Albumin/Globulin Ratio 1.6 (1.2-2.2); Alkaline Phosphatase 84 U/L (46-116); Anion Gap 12 (7-16); Aspartate Amino Transferase 25 U/L (0-34); BUN/Creatinine Ratio 6 Ratio (12-20); Beta HCG,Quantitative 1 mIU/mL (<5.0); Bilirubin,Total 0.5 mg/dL (0.3-1.2); Blood Urea Nitrogen < 5 mg/dL (9-23); Calcium 10.4 mg/dL (8.3-10.6); Calcium (Corrected) 10.4 mg/dL (8.5-10.1); Carbon Dioxide 27.9 mMol/L (20.0-31.0); Chloride 104 mMol/L (98-107); Creatinine (Component) 0.9 mg/dL (0.6-1.3); Estimated Creatinine Clearance 68.1 mL/min (>60); Globulin 3.1 gm/dL (2.3-3.5); Glucose 123 mg/dL (74-106); Osmolality,Calculated 285 (275-295); Potassium 3.2 mMol/L (3.4-5.1); Sodium 144 mMol/L (136-145); Total Protein 8.0 gm/dL (5.7-8.2); eGFR > 60 See Note
[2025-02-01 22:34] LABS: Collection Type, Urine Clean Catch
[2025-02-01 22:43] LABS: Bilirubin,Urine Negative (Negative); Blood,Urine Negative (Negative); Clarity,Urine Clear (Clear/Hazy); Color,Urine Lt-Yellow (Lt Yel-Yel); Culture Indicated,Urine Yes; Glucose, Urine Negative (Negative); Ketones,Urine Negative (Negative); Leukocyte Esterase,Urine Positive (Negative); Nitrite,Urine Negative (Negative); PH,Urine 7.0 (5.0-7.0); Protein,Urine Negative (Neg - Trace); RBC,Urine 3 /hpf (0-3); Specific Gravity,Urine 1.013 (1.001-1.035); Squamous Epithelial Cell,Urine 4 /hpf (0-5); Urobilinogen,Urine Negative mg/dL (0.0-1.0); WBC,Urine 11 /hpf (0-5)
[2025-02-01 23:48] VITALS: BP 111/71; PULSE 68; RESP 17; TEMP 36.8; O2SAT 98
== END 2025-02-01 23:51 | disposition home or self-care (01) ==
PROVIDERS: Physician Assistant; Emergency Provider Emergency Medicine; PCP Family Medicine
DX: K52.9 Noninfective gastroenteritis and colitis, unspecified (principal)
CPT/HCPCS: 36415; 80053; 81001; 84702; 85025; 87086; 96372; 99283; J2765; A9270